=== PATIENT | female | born 1965 | race Caucasian/White ===

== ENCOUNTER 2018-03-14 08:38 | Inpatient (IN) | payer OTHER ==
[~2018-03-14] VITALS: Ht 170.2 cm; Wt 101.0 kg
[~2018-03-14 08:38] MED LIST: ACET325 PO; ALBU90OI; ALBU90OI INH; BISA10S PR; CALCAVITDA; CIPR500 PO; CRUTCH3 USE; DIVA500EC; DIVA500EC PO; DOCU100 PO; DOXY100 PO; DULERA 200 MCG/13 GM INH; FISH1000; FLUOXETINE HCL60 MG PO; FURO40 PO; GABA300 PO; HYDACE5 PO; HYDCHL12.5 PO; IBUP600 PO; IBUP800 PO; LISI5 PO; LORA.5 PO; LORA2; LOSA25; METF500C; METO25ER PO; MULVITMINE; NICO21TP TOP; NITR.4SL SL; ONDA4ODT PO; PANT40 PO; PRAV20 PO; PRED20 PO; PROZAC; RANI150; RANI150 PO; RXHYDACE PO; RXPROCODSY PO; SPIR25 PO; SULTRIDS PO; TIOT18 INH; TRAM50; TRAM50 PO; TUDORZA PRESS400 MCG IH
[2018-03-14 09:11] LABS: BASOPHILS ABSOLUTE AUTO 0.03 K/mm3 (0.00-0.23); BASOPHILS PERCENT AUTO 0 % (0-2); EOSINOPHILS PERCENT AUTO 0 % (0-6); Hematocrit 53.3 % (33.0-51.0); Hemoglobin 16.7 g/dL (11.5-16.0); IMMATURE GRAN ABSOLUTE AUTO 0.02 K/mm3 (0.00-0.10); IMMATURE GRAN PERCENT AUTO 0 % (0-1); LYMPHOCYTES ABSOLUTE AUTO 1.28 K/mm3 (0.84-5.20); LYMPHOCYTES PERCENT AUTO 11 % (21-46); MONOCYTES ABSOLUTE AUTO 0.85 K/mm3 (0.16-1.47); MONOCYTES PERCENT AUTO 7 % (4-13); Mean Corpuscular HGB 28.3 pg (26.0-34.0); Mean Corpuscular HGB Conc 31.3 g/dL (31.5-36.5); Mean Corpuscular Volume 90 fL (80-100); Mean Platelet Volume 11.1 fL (9.1-12.4); NEUTROPHILS ABSOLUTE AUTO 9.63 K/mm3 (1.96-9.15); NEUTROPHILS PERCENT AUTO 82 % (41-73); Platelet Count 189 K/mm3 (150-400); RDW Coefficient Variation 14.2 % (11.7-14.2); RDW Standard Deviation 47.6 fL (35.1-46.3); White Blood Cell Count 11.81 K/mm3 (4.00-11.30)
[2018-03-14 09:28] LABS: Alanine Aminotransfer (ALT/SGP 18 U/L (12-78); Albumin, Blood 3.3 g/dL (3.4-5.0); Albumin/Globulin Ratio 0.8 (0.8-1.8); Alk Phos 82 U/L (50-136); Anion Gap 5 mmol/L (6-16); Aspartate Aminotrans (AST/SGOT 13 U/L (12-37); Blood Urea Nitrogen 14 mg/dL (8-24); Bun/Creatinine Ratio 21.3 (12.0-20.0); CO2, Blood 31 mmol/L (21-32); Calcium, Blood 9.2 mg/dL (8.5-10.1); Chloride, Blood 100 mmol/L (98-108); Creatinine, Blood 0.66 mg/dL (0.40-1.00); Glomerular Filtration Rate >60 (60-); Glucose, Blood 160 mg/dL (70-99); Potassium, Blood 4.5 mmol/L (3.5-5.5); Sodium, Blood 136 mmol/L (136-145); Total Protein, Blood 7.3 g/dL (6.4-8.2); Troponin I <0.015 ng/mL (0.000-0.040)
[2018-03-14] MEDS ORDERED: POTCHL10ER PO (10:24)
[2018-03-14] MEDS ORDERED: ALBU90OI6 INH (13:27)
[2018-03-15 05:07] LABS: BASOPHILS ABSOLUTE AUTO 0.02 K/mm3 (0.00-0.23); BASOPHILS PERCENT AUTO 0 % (0-2); EOSINOPHILS PERCENT AUTO 0 % (0-6); Hematocrit 51.6 % (33.0-51.0); Hemoglobin 15.6 g/dL (11.5-16.0); IMMATURE GRAN ABSOLUTE AUTO 0.03 K/mm3 (0.00-0.10); IMMATURE GRAN PERCENT AUTO 0 % (0-1); LYMPHOCYTES ABSOLUTE AUTO 1.68 K/mm3 (0.84-5.20); LYMPHOCYTES PERCENT AUTO 18 % (21-46); MONOCYTES ABSOLUTE AUTO 0.95 K/mm3 (0.16-1.47); MONOCYTES PERCENT AUTO 10 % (4-13); Mean Corpuscular HGB 27.7 pg (26.0-34.0); Mean Corpuscular HGB Conc 30.2 g/dL (31.5-36.5); Mean Corpuscular Volume 92 fL (80-100); NEUTROPHILS ABSOLUTE AUTO 6.67 K/mm3 (1.96-9.15); NEUTROPHILS PERCENT AUTO 71 % (41-73); Platelet Count 148 K/mm3 (150-400); RDW Coefficient Variation 14.5 % (11.7-14.2); RDW Standard Deviation 48.4 fL (35.1-46.3); Red Blood Cell Count 5.64 M/mm3 (3.80-5.20); White Blood Cell Count 9.35 K/mm3 (4.00-11.30)
[2018-03-15 05:30] LABS: Anion Gap 4 mmol/L (6-16); Blood Urea Nitrogen 14 mg/dL (8-24); Bun/Creatinine Ratio 19.3 (12.0-20.0); CO2, Blood 37 mmol/L (21-32); Calcium, Blood 8.8 mg/dL (8.5-10.1); Chloride, Blood 97 mmol/L (98-108); Creatinine, Blood 0.73 mg/dL (0.40-1.00); Glomerular Filtration Rate >60 (60-); Glucose, Blood 120 mg/dL (70-99); Potassium, Blood 3.9 mmol/L (3.5-5.5); Sodium, Blood 138 mmol/L (136-145)
[2018-03-16 05:39] LABS: Anion Gap 4 mmol/L (6-16); Blood Urea Nitrogen 17 mg/dL (8-24); Bun/Creatinine Ratio 24.7 (12.0-20.0); CO2, Blood 36 mmol/L (21-32); Calcium, Blood 8.8 mg/dL (8.5-10.1); Chloride, Blood 97 mmol/L (98-108); Creatinine, Blood 0.69 mg/dL (0.40-1.00); Glomerular Filtration Rate >60 (60-); Glucose, Blood 111 mg/dL (70-99); Sodium, Blood 137 mmol/L (136-145)
[2018-03-17 05:40] LABS: Anion Gap 5 mmol/L (6-16); Blood Urea Nitrogen 16 mg/dL (8-24); Bun/Creatinine Ratio 20.4 (12.0-20.0); CO2, Blood 37 mmol/L (21-32); Chloride, Blood 96 mmol/L (98-108); Creatinine, Blood 0.78 mg/dL (0.40-1.00); Glomerular Filtration Rate >60 (60-); Glucose, Blood 126 mg/dL (70-99); Potassium, Blood 3.8 mmol/L (3.5-5.5); Sodium, Blood 138 mmol/L (136-145)
[2018-03-17] MEDS ORDERED: FURO40 PO (13:57)
[2018-03-17] MEDS ORDERED: POTCHL20ER PO (13:59)
== END 2018-03-17 14:21 | disposition home or self-care (01) | DRG 291 ==
LOC: ER 08:38 → MEDS 08:39
PROVIDERS: Physician Assistant; ADMIT Hospitalist
DX: I50.23 Acute on chronic systolic (congestive) heart failure (principal); J96.21 Acute and chronic respiratory failure with hypoxia; I42.9 Cardiomyopathy, unspecified; J44.9 Chronic obstructive pulmonary disease, unspecified; K21.9 Gastro-esophageal reflux disease without esophagitis; F17.210 Nicotine dependence, cigarettes, uncomplicated; E66.9 Obesity, unspecified; Z68.32 Body mass index [BMI] 32.0-32.9, adult; E78.5 Hyperlipidemia, unspecified; F41.9 Anxiety disorder, unspecified; G62.9 Polyneuropathy, unspecified
CPT/HCPCS: 36415; 71046; 80048; 80053; 83880; 84145; 84484; 85025; 93005; 93010; 94640; 94760; 94762; 96374; 99285-25; J0456; J1650; J1940; J2270; J7050

== ENCOUNTER 2018-04-24 06:01 | Day surgery (SDC) | payer OTHER ==
[~2018-04-24] VITALS: Ht 170.2 cm; Wt 97.0 kg
[~2018-04-24 06:01] MED LIST changes: +ALBU90OI6 INH; +POTCHL10ER PO; +POTCHL20ER PO
--- NOTE | 2018-04-24 08:28 | NUR ---
PT AMBULATED TO BATHROOM AND BACK WITH SBA. STEADY ON FEET. VOIDED GOOD AMOUNT. HAS NO C/O PAIN OR DISCOMFORT. NO BLEEDING TO RIGHT WRIST SITE NOTED.
--- NOTE | 2018-04-24 12:55 | NUR ---
SUMMARY: PT'S POST PROCEDURE COURSE UNCOMPLICATED. PRIOR TO DISCHARGE, REVIEWED ALL INSTRUCTIONS WITH PATIENT AND REVIEWED HANDOUTS. PT VERBALIZED UNDERSTANDING OF ALL AND WAS ABLE TO REPEAT BACK INSTRUCTIONS. IV D/C TIP INTACT PRIOR TO DISCHARGE. TR BAND DEFLATED PER POLICY AND DOT DRESSING APPLIED. WRIST SPLINT REPLACED AND CMS REMAINED WNL AFTER ALL INTERVENTIONS. NO BLEEDING NOTED PRIOR TO DISCHARGE. PT ATE, DRANK, AMBULATED ALL WITHOUT DIFFICULTY. DISCHARGED HOME VIA W/C AT 1145 WITH FRIEND TO DRIVE HER HOME.
== END 2018-04-24 11:00 | disposition home or self-care (01) ==
LOC: MHTC 06:01
DX: I25.118 Atherosclerotic heart disease of native coronary artery with other forms of angina pectoris (principal); I51.9 Heart disease, unspecified; I42.8 Other cardiomyopathies; J44.9 Chronic obstructive pulmonary disease, unspecified; F17.210 Nicotine dependence, cigarettes, uncomplicated; Z79.899 Other long term (current) drug therapy; E66.9 Obesity, unspecified; I10 Essential (primary) hypertension; F31.9 Bipolar disorder, unspecified; F41.9 Anxiety disorder, unspecified; Z68.33 Body mass index [BMI] 33.0-33.9, adult; Z99.81 Dependence on supplemental oxygen
CPT/HCPCS: 93454; 99152; 99153; C1769; C1894; J1644; J2250; J3010; J7030; Q9967

== ENCOUNTER → 2018-07-03 | Outpatient (CLI) | payer OTHER | LOC: LAB SHORT 11:36 → LAB 11:36 | DX: N76.0 Acute vaginitis (principal) | CPT/HCPCS: 87070; 87205 ==

== ENCOUNTER → 2020-03-15 | Outpatient (CLI) | payer OTHER ==
[~2020-03-15] MED LIST changes: +METF500 PO
[2020-03-15 13:48] LABS: BASOPHILS ABSOLUTE AUTO 0.06 K/mm3 (0.00-0.23); BASOPHILS PERCENT AUTO 1 % (0-2); EOSINOPHILS PERCENT AUTO 0 % (0-6); Hemoglobin 14.7 g/dL (11.5-16.0); IMMATURE GRAN ABSOLUTE AUTO 0.04 K/mm3 (0.00-0.10); IMMATURE GRAN PERCENT AUTO 1 % (0-1); LYMPHOCYTES ABSOLUTE AUTO 1.98 K/mm3 (0.84-5.20); LYMPHOCYTES PERCENT AUTO 23 % (21-46); MONOCYTES ABSOLUTE AUTO 0.52 K/mm3 (0.16-1.47); MONOCYTES PERCENT AUTO 6 % (4-13); Mean Corpuscular HGB 27.4 pg (26.0-34.0); Mean Corpuscular HGB Conc 30.6 g/dL (31.5-36.5); Mean Corpuscular Volume 89 fL (80-100); Mean Platelet Volume 10.9 fL (9.1-12.4); NEUTROPHILS ABSOLUTE AUTO 6.14 K/mm3 (1.96-9.15); NEUTROPHILS PERCENT AUTO 70 % (41-73); Platelet Count 273 K/mm3 (150-400); RDW Coefficient Variation 13.2 % (11.7-14.2); RDW Standard Deviation 42.5 fL (35.1-46.3); Red Blood Cell Count 5.37 M/mm3 (3.80-5.20); White Blood Cell Count 8.74 K/mm3 (4.00-11.30)
[2020-03-15 14:06] LABS: Alanine Aminotransfer (ALT/SGP 25 U/L (12-78); Albumin, Blood 3.6 g/dL (3.4-5.0); Albumin/Globulin Ratio 0.8 (0.8-1.8); Alk Phos 89 U/L (50-136); Anion Gap 4 mmol/L (6-16); Aspartate Aminotrans (AST/SGOT 14 U/L (12-37); Bilirubin, Total 0.5 mg/dL (0.1-1.0); Blood Urea Nitrogen 16 mg/dL (8-24); Bun/Creatinine Ratio 19.8 (12.0-20.0); CHOL/HDL RATIO 5.5; CO2, Blood 37 mmol/L (21-32); Calcium, Blood 9.7 mg/dL (8.5-10.1); Chloride, Blood 97 mmol/L (98-108); Cholesterol 235 mg/dL (50-200); Creatinine, Blood 0.81 mg/dL (0.40-1.00); Globulin, Blood 4.3 g/dL (2.2-4.0); Glomerular Filtration Rate >60 (60-); Glucose, Blood 168 mg/dL (70-99); HDL Cholesterol 43 mg/dL (>39); LDL/HDL RATIO 3.5; Low Density Lipoprotein Chol 149 mg/dL (0-110); Potassium, Blood 3.8 mmol/L (3.5-5.5); Sodium, Blood 138 mmol/L (136-145); Total Protein, Blood 7.9 g/dL (6.4-8.2); Triglycerides 217 mg/dL (30-160); Very Low Density Lipoprot Chol 43 mg/dL (6-32)
== END | disposition home or self-care (01) ==
LOC: LAB SHORT 12:29
PROVIDERS: Family Medicine
DX: E78.00 Pure hypercholesterolemia, unspecified (principal); E11.9 Type 2 diabetes mellitus without complications
CPT/HCPCS: 80053; 80061; 83036; 85025

== ENCOUNTER → 2020-04-15 | Outpatient (CLI) | payer OTHER ==
[2020-04-19 11:07] LABS: HPV 16 Negative (Negative); HPV 18 Negative (Negative); HPV OTHER HR TYPES Negative (Negative)
== END ==
LOC: LAB 12:33 → LAB SHORT 12:33
PROVIDERS: Registered Nurse Community Health
DX: Z12.4 Encounter for screening for malignant neoplasm of cervix (principal); N95.0 Postmenopausal bleeding; R93.89 Abnormal findings on diagnostic imaging of other specified body structures
CPT/HCPCS: 87624; 88305; G0123

== ENCOUNTER 2020-06-18 06:06 | Day surgery (SDC) | payer OTHER ==
[~2020-06-18] VITALS: Ht 170.2 cm; Wt 117.1 kg
[~2020-06-18 06:06] MED LIST changes: -METF500 PO
--- NOTE | 2020-06-18 06:46 | NUR ---
06/18/20 0646 Jennyfer Ignacio PT OXYGEN SATURATION RUNNING 88-90. O2 AT 2L PER NC PLACED. O2 AT 94%
[2020-06-18] MEDS ORDERED: METF500 PO (07:00)
--- NOTE | 2020-06-18 09:28 | NUR ---
06/18/20 0928 Rose Phillips PT REQUIRED 3L O2 NC UPON ARRIVAL TO SDU. PT DENIES PAIN HOWEVER COMPLAINES OF URGE TO URINATE DUE TO CATHETER INSERTION IN OR. PT ASSISTED TO RESTROOM. MINIMAL RED BLOOD ON PAD. PT DENIES PAIN AND NAUSEA. PT ON ROOM AIR PRIOR TO DC
== END 2020-06-18 09:04 | disposition home or self-care (01) ==
LOC: ORSCSDS 06:06
PROVIDERS: Obstetrics & Gynecology
PROC: 0UDB8ZX Extraction of Endometrium, Via Natural or Artificial Opening Endoscopic, Diagnostic (ICD-10-PCS; principal; 2020-06-18 07:30)
DX: N95.0 Postmenopausal bleeding (principal); C54.1 Malignant neoplasm of endometrium; I10 Essential (primary) hypertension; I50.9 Heart failure, unspecified; J44.9 Chronic obstructive pulmonary disease, unspecified; F17.210 Nicotine dependence, cigarettes, uncomplicated; G47.33 Obstructive sleep apnea (adult) (pediatric); Z99.81 Dependence on supplemental oxygen; E11.9 Type 2 diabetes mellitus without complications; F84.0 Autistic disorder; E66.01 Morbid (severe) obesity due to excess calories; Z68.41 Body mass index [BMI] 40.0-44.9, adult; Z79.899 Other long term (current) drug therapy; Z79.84 Long term (current) use of oral hypoglycemic drugs
CPT/HCPCS: 82947; 88305; J1100; J1885; J1956; J2250; J2405; J2704; J3010; J7120

== ENCOUNTER 2021-01-15 08:55 | Observation (INO) | payer OTHER ==
[~2021-01-15] VITALS: Ht 165.1 cm; Wt 102.1 kg
[~2021-01-15 08:55] MED LIST changes: +LASIX20 M2 PO; +METF500 PO
[2021-01-15 09:34] LABS: Bicarbonate Venous 42.5 mmol/L (24.0-30.0); PCO2 Venous 66.6 mmHg (38-42); PO2 Venous 174 mmHg (38-42); pH Blood Venous 7.45 (7.34-7.37)
[2021-01-15 10:03] LABS: Magnesium, Blood 1.6 mg/dL (1.6-2.4); Troponin I <0.015 ng/mL (0.000-0.040)
[2021-01-15 10:09] LABS: Blood Urea Nitrogen 6 mg/dL (8-24); Bun/Creatinine Ratio 9.9 (12.0-20.0); CO2, Blood 42 mmol/L (21-32); Calcium, Blood 9.3 mg/dL (8.5-10.1); Chloride, Blood 97 mmol/L (98-108); Creatinine, Blood 0.61 mg/dL (0.40-1.00); Glomerular Filtration Rate >60 (60-); Glucose, Blood 178 mg/dL (70-99); Potassium, Blood 4.2 mmol/L (3.5-5.5); Sodium, Blood 138 mmol/L (136-145)
[2021-01-15 10:10] LABS: Anion Gap Unable to Calculate mmol/L (6-16)
[2021-01-15 10:48] LABS: BASOPHILS ABSOLUTE AUTO 0.05 K/mm3 (0.00-0.23); BASOPHILS PERCENT AUTO 1 % (0-2); EOSINOPHILS ABSOLUTE AUTO 0.34 K/mm3 (0.00-0.68); EOSINOPHILS PERCENT AUTO 4 % (0-6); Hematocrit 46.1 % (33.0-51.0); Hemoglobin 13.2 g/dL (11.5-16.0); IMMATURE GRAN ABSOLUTE AUTO 0.06 K/mm3 (0.00-0.10); IMMATURE GRAN PERCENT AUTO 1 % (0-1); LYMPHOCYTES ABSOLUTE AUTO 1.62 K/mm3 (0.84-5.20); LYMPHOCYTES PERCENT AUTO 19 % (21-46); MONOCYTES ABSOLUTE AUTO 0.57 K/mm3 (0.16-1.47); MONOCYTES PERCENT AUTO 7 % (4-13); Mean Corpuscular HGB 25.5 pg (26.0-34.0); Mean Corpuscular HGB Conc 28.6 g/dL (31.5-36.5); Mean Corpuscular Volume 89 fL (80-100); Mean Platelet Volume 11.1 fL (9.1-12.4); NEUTROPHILS ABSOLUTE AUTO 5.98 K/mm3 (1.96-9.15); NEUTROPHILS PERCENT AUTO 69 % (41-73); Platelet Count 197 K/mm3 (150-400); RDW Coefficient Variation 13.8 % (11.7-14.2); RDW Standard Deviation 44.2 fL (35.1-46.3); Red Blood Cell Count 5.17 M/mm3 (3.80-5.20); White Blood Cell Count 8.62 K/mm3 (4.00-11.30)
[2021-01-15 11:14] LABS: SARS-Cov-2 (COVID-19) PCR, MMC NEGATIVE (NEGATIVE)
[2021-01-15] MEDS ORDERED: OMEP20ER PO (15:35)
[2021-01-15] MEDS ORDERED: ENTRESTO 24 MG1 EACH PO (15:36)
[2021-01-15] MEDS ORDERED: PRAV20 PO (15:36)
[2021-01-15] MEDS ORDERED: BUSP10 PO (15:37)
--- NOTE | 2021-01-15 17:11 | NUR ---
PATIENT WAS AN ADMIT FROM ED AT 1600 APROX. PATIENT IS ALERT AND ORIENTED X4. PATIENT IS PLEASENT AND COOPERATIVE WITH CARE. ADMISSION IS DONE AND MEDICATION RECONSILATION IS DONE. ADMITTED FOR COPD EXASPERATION. PATIENT IS ON 3LITERS WHICH IS PATIENTS BASELINE. NO ACUTE EVENTS THIS SHIFT. VITAL SIGNS REVIEWED. WILL CONTINUE TO MONITOR UNTIL SHIFT CHANGE.
--- NOTE | 2021-01-16 02:30 | NUR ---
BIODIESEL PRODUCTION ASSOCIATE SUMMARY PATIENT HAD A CALM SHIFT. SHE DID NOT LODGE ANY COMPLAIN. WILL CONTINUE TO MONIO=TOR HER. HER VITALS WERE STABLE.
[2021-01-16 06:42] LABS: Magnesium, Blood 1.7 mg/dL (1.6-2.4)
[2021-01-16 06:46] LABS: Anion Gap Unable to Calculate mmol/L (6-16); Blood Urea Nitrogen 13 mg/dL (8-24); Bun/Creatinine Ratio 20.3 (12.0-20.0); CO2, Blood 43 mmol/L (21-32); Calcium, Blood 9.7 mg/dL (8.5-10.1); Chloride, Blood 95 mmol/L (98-108); Creatinine, Blood 0.64 mg/dL (0.40-1.00); Glomerular Filtration Rate >60 (60-); Glucose, Blood 241 mg/dL (70-99); Potassium, Blood 4.5 mmol/L (3.5-5.5); Sodium, Blood 136 mmol/L (136-145)
[2021-01-16] MEDS ORDERED: IPRAT-ALBUT 0.5-3 ML INH (11:44)
[2021-01-16] MEDS ORDERED: DELTASONE20 MG PO (11:45)
--- NOTE | 2021-01-16 15:48 | NUR ---
PT SLEEPING AT START OF SHIFT. WOKE EASILY FOR CARE. PLEASANT AND CO-OP. ON 3L O2 VIA NC; PT REPORTS THAT HER BASELINE. UP TO BSC INDEPENDENTLY TO VOID. DR BA IN TO SEE PT, DISCUSSED PLAN OF CARE. PT TO D/C HOME THIS AFTERNOON. PT REQUESTED SHOWER. SET UP BY FUNERAL PRE ARRANGEMENT COUNSELOR. PT CALLED WHEN FINISHED. PT ABLE TO DRESS HERSELF. PT ON RA FOR SHOWER AND UP TO D/C. PT REPORTED THAT NORMAL. PT'S HERE TO PICK PT UP. D/C INSTRUCTIONS REVIEWED WITH PT. MEDS FAXED PER PT REQUEST AND REVIEWED; VERBALIZED UNDERSTANDING. DENIED FURTHER NEEDS. ASSISTED OUT TO CAR VIA W/C.
== END 2021-01-16 15:01 | disposition home or self-care (01) ==
LOC: ER 08:55 → MEDS 08:56
PROVIDERS: Student in an Organized Health Care Education/Training Program; ADMIT Internal Medicine
DX: J44.1 Chronic obstructive pulmonary disease with (acute) exacerbation (principal); I11.0 Hypertensive heart disease with heart failure; I50.20 Unspecified systolic (congestive) heart failure; F17.210 Nicotine dependence, cigarettes, uncomplicated; I42.8 Other cardiomyopathies; G44.229 Chronic tension-type headache, not intractable; F31.9 Bipolar disorder, unspecified; E66.01 Morbid (severe) obesity due to excess calories; K21.9 Gastro-esophageal reflux disease without esophagitis; E78.5 Hyperlipidemia, unspecified; Z86.19 Personal history of other infectious and parasitic diseases; Z88.6 Allergy status to analgesic agent; Z88.1 Allergy status to other antibiotic agents; Z88.0 Allergy status to penicillin; Z91.048 Other nonmedicinal substance allergy status; Z68.37 Body mass index [BMI] 37.0-37.9, adult; Z20.822 Contact with and (suspected) exposure to COVID-19
CPT/HCPCS: 36415; 71045; 80048; 82803; 82947; 83735; 83880; 84484; 85025; 93005; 93010; 94640; 94644; 94664; 94760; 96374; 96375; 99285-25; A9270; J1650; J1885; J1940; J2765; J2920; J2930; J7512; U0004

== ENCOUNTER 2022-03-16 17:43 | Emergency (ER) | payer OTHER ==
[~2022-03-16] VITALS: Ht 172.7 cm; Wt 96.2 kg
[~2022-03-16 17:43] MED LIST changes: +BUSP10 PO; +DELTASONE20 MG PO; +ENTRESTO 24 MG1 EACH PO; +IPRAT-ALBUT 0.5-3 ML INH; +OMEP20ER PO
[2022-03-16 18:39] LABS: BASOPHILS ABSOLUTE AUTO 0.05 K/mm3 (0.00-0.23); BASOPHILS PERCENT AUTO 1 % (0-2); EOSINOPHILS PERCENT AUTO 0 % (0-6); Hematocrit 39.6 % (33.0-51.0); Hemoglobin 12.3 g/dL (11.5-16.0); IMMATURE GRAN ABSOLUTE AUTO 0.06 K/mm3 (0.00-0.10); IMMATURE GRAN PERCENT AUTO 1 % (0-1); LYMPHOCYTES ABSOLUTE AUTO 2.17 K/mm3 (0.84-5.20); LYMPHOCYTES PERCENT AUTO 24 % (21-46); MONOCYTES ABSOLUTE AUTO 0.73 K/mm3 (0.16-1.47); MONOCYTES PERCENT AUTO 8 % (4-13); Mean Corpuscular HGB 27.6 pg (26.0-34.0); Mean Corpuscular HGB Conc 31.1 g/dL (31.5-36.5); Mean Corpuscular Volume 89 fL (80-100); Mean Platelet Volume 9.9 fL (9.1-12.4); NEUTROPHILS ABSOLUTE AUTO 5.94 K/mm3 (1.96-9.15); NEUTROPHILS PERCENT AUTO 66 % (41-73); Platelet Count 244 K/mm3 (150-400); RDW Coefficient Variation 13.3 % (11.7-14.2); RDW Standard Deviation 43.2 fL (35.1-46.3); Red Blood Cell Count 4.46 M/mm3 (3.80-5.20); White Blood Cell Count 8.95 K/mm3 (4.00-11.30)
[2022-03-16 19:01] LABS: Albumin, Blood 2.9 g/dL (3.4-5.0); Albumin/Globulin Ratio 0.7 (0.8-1.8); Bilirubin, Total 0.3 mg/dL (0.1-1.0); Bun/Creatinine Ratio 11.4 (12.0-20.0); Calcium, Blood 7.8 mg/dL (8.5-10.1); Creatinine, Blood 0.88 mg/dL (0.40-1.00); Globulin, Blood 4.1 g/dL (2.2-4.0); Potassium, Blood 3.5 mmol/L (3.5-5.5)
[2022-03-16] MEDS ORDERED: Prednisone50 MG PO (21:14)
== END 2022-03-16 21:54 | disposition home or self-care (01) ==
LOC: ER 17:43
PROVIDERS: Physician Assistant
DX: J20.9 Acute bronchitis, unspecified (principal); J44.0 Chronic obstructive pulmonary disease with (acute) lower respiratory infection; I50.20 Unspecified systolic (congestive) heart failure; Z88.0 Allergy status to penicillin; Z91.09 Other allergy status, other than to drugs and biological substances; Z79.899 Other long term (current) drug therapy; Z79.52 Long term (current) use of systemic steroids; Z87.891 Personal history of nicotine dependence
CPT/HCPCS: 36415; 71046; 80053; 83880; 84484; 85025; 93005; 93010; 94640; 94664; 99285-25; J7512

== ENCOUNTER 2023-09-09 17:29 | Emergency (ER) | payer OTHER ==
[~2023-09-09] VITALS: Ht 170.2 cm; Wt 102.1 kg
[~2023-09-09 17:29] MED LIST changes: +Prednisone50 MG PO
[2023-09-09 18:16] LABS: BASOPHILS ABSOLUTE AUTO 0.04 K/mm3 (0.00-0.23); BASOPHILS PERCENT AUTO 0 % (0-2); EOSINOPHILS PERCENT AUTO 0 % (0-6); Hematocrit 47.7 % (33.0-51.0); Hemoglobin 14.7 g/dL (11.5-16.0); IMMATURE GRAN ABSOLUTE AUTO 0.03 K/mm3 (0.00-0.10); IMMATURE GRAN PERCENT AUTO 0 % (0-1); LYMPHOCYTES ABSOLUTE AUTO 2.07 K/mm3 (0.84-5.20); LYMPHOCYTES PERCENT AUTO 18 % (21-46); MONOCYTES ABSOLUTE AUTO 0.79 K/mm3 (0.16-1.47); MONOCYTES PERCENT AUTO 7 % (4-13); Mean Corpuscular HGB Conc 30.8 g/dL (31.5-36.5); Mean Corpuscular Volume 88 fL (80-100); Mean Platelet Volume 10.5 fL (9.1-12.4); NEUTROPHILS ABSOLUTE AUTO 8.53 K/mm3 (1.96-9.15); NEUTROPHILS PERCENT AUTO 74 % (41-73); Platelet Count 243 K/mm3 (150-400); RDW Standard Deviation 41.1 fL (35.1-46.3); Red Blood Cell Count 5.44 M/mm3 (3.80-5.20); White Blood Cell Count 11.46 K/mm3 (4.00-11.30)
[2023-09-09 18:36] LABS: Albumin, Blood 3.5 g/dL (3.4-5.0); Albumin/Globulin Ratio 0.7 (0.8-1.8); Bilirubin, Total 0.6 mg/dL (0.1-1.0); Bun/Creatinine Ratio 14.6 (12.0-20.0); Calcium, Blood 9.5 mg/dL (8.5-10.1); Creatinine, Blood 1.03 mg/dL (0.40-1.00); Globulin, Blood 4.9 g/dL (2.2-4.0); Potassium, Blood 4.4 mmol/L (3.5-5.5); Total Protein, Blood 8.4 g/dL (6.4-8.2)
[2023-09-09 19:34] VITALS: BP 127/84
[2023-09-09] MEDS ORDERED: Cephalexin Monohydrate 500 MG Cap PO ONE (21:00)
[2023-09-09] MEDS ORDERED: CEPH500 PO (21:04)
[2023-09-09] MEDS ORDERED: DOXY100 PO (21:04)
[2023-09-09] MEDS ORDERED: Doxycycline Hyclate 100 MG TAB PO ONE (21:05)
== END 2023-09-09 21:11 | disposition home or self-care (01) ==
LOC: ER 17:29
PROVIDERS: Physician Assistant
DX: L02.612 Cutaneous abscess of left foot (principal); L03.116 Cellulitis of left lower limb; J44.9 Chronic obstructive pulmonary disease, unspecified; K21.9 Gastro-esophageal reflux disease without esophagitis; W57.XXXA Bitten or stung by nonvenomous insect and other nonvenomous arthropods, initial encounter; Z87.891 Personal history of nicotine dependence; Z79.52 Long term (current) use of systemic steroids; Z79.84 Long term (current) use of oral hypoglycemic drugs; Z79.899 Other long term (current) drug therapy; Z88.0 Allergy status to penicillin; Z88.1 Allergy status to other antibiotic agents; Z88.6 Allergy status to analgesic agent; Z91.048 Other nonmedicinal substance allergy status
CPT/HCPCS: 73620; 80053; 85025; 99283-25; A9270

== ENCOUNTER → 2024-03-26 | Outpatient (CLI) | payer OTHER ==
[~2024-03-26] MED LIST changes: -ALBU90OI6 INH; +ANORO ELLIPTA1 EACH INH; +CEPH500 PO; -FLUOXETINE HCL60 MG PO; -LASIX20 M2 PO; +PRAVASTATIN SOD40 MG PO; +Prozac40 MG PO
[2024-03-26 12:33] LABS: BASOPHILS ABSOLUTE AUTO 0.03 K/mm3 (0.00-0.23); BASOPHILS PERCENT AUTO 0 % (0-2); EOSINOPHILS ABSOLUTE AUTO 0.01 K/mm3 (0.00-0.68); EOSINOPHILS PERCENT AUTO 0 % (0-6); Hematocrit 48.8 % (33.0-51.0); Hemoglobin 13.6 g/dL (11.5-16.0); IMMATURE GRAN ABSOLUTE AUTO 0.04 K/mm3 (0.00-0.10); IMMATURE GRAN PERCENT AUTO 0 % (0-1); LYMPHOCYTES ABSOLUTE AUTO 1.51 K/mm3 (0.84-5.20); LYMPHOCYTES PERCENT AUTO 17 % (21-46); MONOCYTES ABSOLUTE AUTO 0.67 K/mm3 (0.16-1.47); MONOCYTES PERCENT AUTO 8 % (4-13); Mean Corpuscular HGB 24.2 pg (26.0-34.0); Mean Corpuscular HGB Conc 27.9 g/dL (31.5-36.5); Mean Corpuscular Volume 87 fL (80-100); Mean Platelet Volume 11.3 fL (9.1-12.4); NEUTROPHILS ABSOLUTE AUTO 6.72 K/mm3 (1.96-9.15); NEUTROPHILS PERCENT AUTO 75 % (41-73); Platelet Count 212 K/mm3 (150-400); RDW Coefficient Variation 14.8 % (11.7-14.2); RDW Standard Deviation 46.5 fL (35.1-46.3); Red Blood Cell Count 5.61 M/mm3 (3.80-5.20); White Blood Cell Count 8.98 K/mm3 (4.00-11.30)
[2024-03-26 12:56] LABS: Albumin, Blood 3.2 g/dL (3.4-5.0); Albumin/Globulin Ratio 0.9 (0.8-1.8); Bilirubin, Total 1.3 mg/dL (0.1-1.0); Bun/Creatinine Ratio 23.1 (12.0-20.0); Calcium, Blood 8.7 mg/dL (8.5-10.1); Creatinine, Blood 1.17 mg/dL (0.40-1.00); Globulin, Blood 3.4 g/dL (2.2-4.0); Total Protein, Blood 6.6 g/dL (6.4-8.2)
== END | disposition home or self-care (01) ==
LOC: LAB SHORT 12:29 → LAB 12:29
PROVIDERS: Physician Assistant
DX: R60.9 Edema, unspecified (principal); R06.02 Shortness of breath
CPT/HCPCS: 80053; 83880; 84484; 85025

== ENCOUNTER 2024-03-30 19:50 | Inpatient (IN) | payer OTHER ==
[~2024-03-30] VITALS: Ht 170.2 cm; Wt 95.9 kg
[~2024-03-30 19:50] MED LIST changes: -ANORO ELLIPTA1 EACH INH; -Prozac40 MG PO
[2024-03-30 20:34] LABS: BASOPHILS ABSOLUTE AUTO 0.03 K/mm3 (0.00-0.23); BASOPHILS PERCENT AUTO 0 % (0-2); EOSINOPHILS PERCENT AUTO 0 % (0-6); Hematocrit 50.5 % (33.0-51.0); Hemoglobin 14.8 g/dL (11.5-16.0); IMMATURE GRAN ABSOLUTE AUTO 0.04 K/mm3 (0.00-0.10); IMMATURE GRAN PERCENT AUTO 0 % (0-1); LYMPHOCYTES ABSOLUTE AUTO 1.96 K/mm3 (0.84-5.20); LYMPHOCYTES PERCENT AUTO 21 % (21-46); MONOCYTES ABSOLUTE AUTO 1.07 K/mm3 (0.16-1.47); MONOCYTES PERCENT AUTO 12 % (4-13); Mean Corpuscular HGB 24.5 pg (26.0-34.0); Mean Corpuscular HGB Conc 29.3 g/dL (31.5-36.5); Mean Corpuscular Volume 84 fL (80-100); Mean Platelet Volume 10.8 fL (9.1-12.4); NEUTROPHILS ABSOLUTE AUTO 6.17 K/mm3 (1.96-9.15); NEUTROPHILS PERCENT AUTO 67 % (41-73); NRBC ABSOLUTE 0.03 K/mm3 (0.00-0.02); NRBC Auto 0.3 /100 WBC (0.0-0.2); Platelet Count 251 K/mm3 (150-400); RDW Coefficient Variation 16.7 % (11.7-14.2); RDW Standard Deviation 45.4 fL (35.1-46.3); Red Blood Cell Count 6.05 M/mm3 (3.80-5.20); White Blood Cell Count 9.27 K/mm3 (4.00-11.30)
[2024-03-30 20:59] LABS: Alanine Aminotransfer (ALT/SGP 723 U/L (12-78); Albumin, Blood 3.3 g/dL (3.4-5.0); Alk Phos 121 U/L (50-136); Anion Gap 8 mmol/L (3-11); Aspartate Aminotrans (AST/SGOT 557 U/L (12-37); Bilirubin, Total 1.4 mg/dL (0.1-1.0); Blood Urea Nitrogen 45 mg/dL (8-24); Bun/Creatinine Ratio 31.9 (12.0-20.0); CO2, Blood 36 mmol/L (21-32); Chloride, Blood 95 mmol/L (98-108); Creatinine, Blood 1.41 mg/dL (0.40-1.00); Globulin, Blood 3.4 g/dL (2.2-4.0); Glomerular Filtration Rate 44 (60-); Glucose, Blood 180 mg/dL (70-99); Potassium, Blood 4.9 mmol/L (3.5-5.5); Sodium, Blood 134 mmol/L (136-145); Total Protein, Blood 6.7 g/dL (6.4-8.2)
[2024-03-30 23:36] LABS: Acetaminophen, Random <2.0 ug/mL (10.0-30.0)
[2024-03-31] MEDS ORDERED: Furosemide 10 MG/ML 4ML Vial IV ONE (00:20)
[2024-03-31] MEDS ORDERED: FLU VACC TS2024-25(6MOS UP)/PF 45 MCG/0.5 ML SYRINGE IM ONE (02:35)
[2024-03-31 04:51] LABS: BASOPHILS ABSOLUTE AUTO 0.04 K/mm3 (0.00-0.23); BASOPHILS PERCENT AUTO 0 % (0-2); EOSINOPHILS PERCENT AUTO 0 % (0-6); Hematocrit 46.5 % (33.0-51.0); Hemoglobin 13.9 g/dL (11.5-16.0); IMMATURE GRAN ABSOLUTE AUTO 0.04 K/mm3 (0.00-0.10); IMMATURE GRAN PERCENT AUTO 0 % (0-1); LYMPHOCYTES ABSOLUTE AUTO 1.91 K/mm3 (0.84-5.20); LYMPHOCYTES PERCENT AUTO 20 % (21-46); MONOCYTES ABSOLUTE AUTO 0.87 K/mm3 (0.16-1.47); MONOCYTES PERCENT AUTO 9 % (4-13); Mean Corpuscular HGB Conc 29.9 g/dL (31.5-36.5); Mean Corpuscular Volume 84 fL (80-100); NEUTROPHILS ABSOLUTE AUTO 6.89 K/mm3 (1.96-9.15); NEUTROPHILS PERCENT AUTO 71 % (41-73); Platelet Count 228 K/mm3 (150-400); RDW Coefficient Variation 16.8 % (11.7-14.2); RDW Standard Deviation 45.9 fL (35.1-46.3); Red Blood Cell Count 5.56 M/mm3 (3.80-5.20); White Blood Cell Count 9.75 K/mm3 (4.00-11.30)
[2024-03-31] MEDS ORDERED: FentaNYL Citrate 50 MCG/ML 2 ML Injection IV PRN (05:10)
[2024-03-31 05:34] LABS: Albumin, Blood 3.1 g/dL (3.4-5.0); Bun/Creatinine Ratio 33.8 (12.0-20.0); Calcium, Blood 8.8 mg/dL (8.5-10.1); Creatinine, Blood 1.3 mg/dL (0.40-1.00); Potassium, Blood 4.9 mmol/L (3.5-5.5); Total Protein, Blood 6.1 g/dL (6.4-8.2)
[2024-03-31 07:27] LABS: Source, Urine Clean Catch
[2024-03-31 07:49] LABS: Appearance, Urine Clear (Clear); Bilirubin, Urine Neg (Neg); Blood, Urine Neg (Neg); Color, Urine Yellow (P-Yellow); Glucose Qualitative, Urine Neg (Neg); Ketones, Urine Neg (Neg); Leukocyte Esterase, Urine Neg (Neg); Nitrite, Urine Neg (Neg); Protein, Urine 1+ (Neg); Urobilinogen, Urine NORM (Normal)
[2024-03-31] MEDS ORDERED: Furosemide 10 MG/ML 4ML Vial IV SCH ×2 (09:00)
[2024-03-31] MEDS ORDERED: Enoxaparin 40 MG/0.4 ML SYR SC SCH (09:00)
[2024-03-31] MEDS ORDERED: Midodrine 2.5 MG Tab PO SCH (09:00)
[2024-03-31 14:38] VITALS: BP 104/86
[2024-03-31] MEDS ORDERED: ENTRESTO 24 MG1 EACH PO (14:59)
[2024-03-31] MEDS ORDERED: ANORO ELLIPTA1 EACH INH (15:02)
[2024-03-31 18:25] VITALS: BP 96/77
--- NOTE | 2024-03-31 19:16 | NUR ---
SHIFT SUMMARY: PT IS A/O X 4, SBA. COOPERATIVE WITH CARE. PT ON 3 LPM VIA NC WHICH IS HER BASELINE 02 NEEDS. PT HAS INSP/EXP WHEEZES AND COARSE LS IN THE BASES. PT HAD VERY COLD FEET AND WERE CYANOTIC TOES. WAS ABLE TO GET PEDAL PULSES BY DOPPLAR. PT REPORTED SHE HAD DIFFICULTY EATING DINNER DUE TO NO TEETH AND SHE LEFT HER DENTURES AT HOME. DIET TEXTURE CHANGED TO MEET PT DIET NEEDS. PT AGREED TO TEXTURE CHANGE. PT REPORTED PAIN TO LOWER BACK. FENTANYL 25 MCG GIVEN PER ORDER AND WAS EFFECTIVE IN TREATING HER PAIN.
[2024-03-31 20:59] VITALS: BP 97/82
[2024-04-01] VITALS (7 sets, daily range): BP systolic 89–109; BP diastolic 58–82
--- NOTE | 2024-04-01 05:24 | NUR ---
SHIFT SUMMARY; PATIENT SLEPT IN LONG INTERVALS. DENIED NEEDING PAIN MEDS. I&O INFORCED AND REMINDED HER TO SAVE ANY URINES.
[2024-04-01 05:53] LABS: Hematocrit 48.5 % (33.0-51.0); Hemoglobin 13.8 g/dL (11.5-16.0); Mean Corpuscular HGB 24.6 pg (26.0-34.0); Mean Corpuscular HGB Conc 28.5 g/dL (31.5-36.5); Mean Corpuscular Volume 86 fL (80-100); Platelet Count 219 K/mm3 (150-400); RDW Coefficient Variation 16.2 % (11.7-14.2); RDW Standard Deviation 47.4 fL (35.1-46.3); Red Blood Cell Count 5.62 M/mm3 (3.80-5.20); White Blood Cell Count 12.03 K/mm3 (4.00-11.30)
[2024-04-01 06:21] LABS: Bun/Creatinine Ratio 32.7 (12.0-20.0); Calcium, Blood 9.1 mg/dL (8.5-10.1); Creatinine, Blood 1.53 mg/dL (0.40-1.00); Magnesium, Blood 1.7 mg/dL (1.6-2.4); Phosphorus, Blood 4.7 mg/dL (2.5-4.9); Potassium, Blood 4.8 mmol/L (3.5-5.5)
[2024-04-01] MEDS ORDERED: NS 500 ML IV SCH (08:00)
[2024-04-01 08:23] LABS: Albumin, Blood 2.9 g/dL (3.4-5.0); Albumin/Globulin Ratio 0.9 (0.8-1.8); Bilirubin, Direct 0.4 mg/dL (0.0-0.3); Bilirubin, Indirect 0.7 mg/dL (0.1-0.7); Bilirubin, Total 1.1 mg/dL (0.1-1.0); Globulin, Blood 3.3 g/dL (2.2-4.0); Total Protein, Blood 6.2 g/dL (6.4-8.2)
[2024-04-01] MEDS ORDERED: Furosemide 20 MG Tab PO SCH (09:00)
[2024-04-01 10:12] LABS: Source, Urine Clean Catch
[2024-04-01 10:14] LABS: Appearance, Urine Clear (Clear); Bilirubin, Urine Neg (Neg); Blood, Urine 3+ (Neg); Color, Urine Yellow (P-Yellow); Glucose Qualitative, Urine Neg (Neg); Ketones, Urine Neg (Neg); Leukocyte Esterase, Urine 1+ (Neg); Nitrite, Urine Neg (Neg); Protein, Urine 2+ (Neg); Specific Gravity, Urine 1.015 (1.003-1.022); Urobilinogen, Urine NORM (Normal)
[2024-04-01 10:25] LABS: Bacteria Mod /hpf; Squamous Epithelial Cells Many /hpf (Few); White Blood Cells, Urine 0-2 /hpf (0-5)
[2024-04-01] MEDS ORDERED: Methocarbamol 500 MG Tab PO PRN (11:05)
[2024-04-01] MEDS ORDERED: Ipratropium/Albuterol SulF 2.5-0.5MG/3 ML Amp INH PRN (11:05)
[2024-04-01] MEDS ORDERED: Lidocaine 4% 1 Patch TOP SCH (12:00)
[2024-04-01 17:41] LABS: HEPATITIS A ANTIBODY, IGM Negative (Negative); HEPATITIS B CORE ANTIBODY, IGM Negative (Negative); HEPATITIS B SURFACE ANTIGEN Negative (Negative); HEPATITIS C AB CIA INTERP Low Pos (Negative); HEPATITIS C ANTIBODY CIA INDEX 6.76 IV
[2024-04-01] MEDS ORDERED: Midodrine 5 MG Tab PO SCH (18:00)
--- NOTE | 2024-04-01 18:46 | NUR ---
SHIFT SUMMARY: PT IS A/O X 4, SBA TO BATHROOM PLEASANT AND COOPERATIVE WITH CARE. PT ON 3 LPM VIA NC WHICH IS HER BASELINE. PT C/O LOWER BACK PAIN. LIDOCAINE PATCH AND MUSCLE RELAXER EFFECTIVE IN TREATING PAIN. PT HAD NO OTHER CONCERNS OR COMPLAINTS THROUGH THE DAY.
[2024-04-01] MEDS ORDERED: Nitrofurantoin/Nitrofuran Mac 100 MG Cap PO SCH (21:00)
[2024-04-02 05:49] VITALS: BP 95/78
--- NOTE | 2024-04-02 06:03 | NUR ---
SHIFT SUMMARY; PATIENT SLEPT IN LONG INTERVALS, UP TO BR INDEPEND. GIVEN PRN ROBAXIN AT HS. O2/3L/NC
[2024-04-02 06:06] LABS: BASOPHILS ABSOLUTE AUTO 0.04 K/mm3 (0.00-0.23); BASOPHILS PERCENT AUTO 0 % (0-2); EOSINOPHILS PERCENT AUTO 0 % (0-6); Hematocrit 46.3 % (33.0-51.0); Hemoglobin 13.4 g/dL (11.5-16.0); IMMATURE GRAN ABSOLUTE AUTO 0.04 K/mm3 (0.00-0.10); IMMATURE GRAN PERCENT AUTO 0 % (0-1); LYMPHOCYTES ABSOLUTE AUTO 1.82 K/mm3 (0.84-5.20); LYMPHOCYTES PERCENT AUTO 18 % (21-46); MONOCYTES ABSOLUTE AUTO 0.94 K/mm3 (0.16-1.47); MONOCYTES PERCENT AUTO 9 % (4-13); Mean Corpuscular HGB 24.7 pg (26.0-34.0); Mean Corpuscular HGB Conc 28.9 g/dL (31.5-36.5); Mean Corpuscular Volume 85 fL (80-100); Mean Platelet Volume 11.2 fL (9.1-12.4); NEUTROPHILS ABSOLUTE AUTO 7.52 K/mm3 (1.96-9.15); NEUTROPHILS PERCENT AUTO 73 % (41-73); Platelet Count 207 K/mm3 (150-400); RDW Coefficient Variation 16.6 % (11.7-14.2); Red Blood Cell Count 5.43 M/mm3 (3.80-5.20); White Blood Cell Count 10.36 K/mm3 (4.00-11.30)
[2024-04-02 06:57] LABS: Bilirubin, Total 0.8 mg/dL (0.1-1.0); Bun/Creatinine Ratio 34.8 (12.0-20.0); Calcium, Blood 8.8 mg/dL (8.5-10.1); Creatinine, Blood 1.38 mg/dL (0.40-1.00); Globulin, Blood 3.1 g/dL (2.2-4.0); Magnesium, Blood 1.8 mg/dL (1.6-2.4); Potassium, Blood 4.5 mmol/L (3.5-5.5); Total Protein, Blood 6.1 g/dL (6.4-8.2)
[2024-04-02 07:41] VITALS: BP 107/77
[2024-04-02] MEDS ORDERED: Cosyntropin 0.25 MG / ML 1ML Vial IV ONE (09:30)
[2024-04-02] MEDS ORDERED: HYDROmorphone HCl 2 MG Tab PO PRN (10:35)
[2024-04-02 13:12] VITALS: BP 104/83
[2024-04-02] MEDS ORDERED: Diclofenac Sodium 100 GM TUBE TOP SCH (14:00)
[2024-04-02 17:02] VITALS: BP 99/77
[2024-04-02 17:53] LABS: HCV QNT BY NAAT (IU/ML) Not Detected; HCV QNT BY NAAT (LOG IU/ML) Not Detected; HCV QNT BY NAAT INTERP Not Detected (Not Detected)
[2024-04-02] MEDS ORDERED: Furosemide 10 MG / ML 2ML Vial IV SCH (18:00)
--- NOTE | 2024-04-02 18:47 | NUR ---
SHIFT SUMMARY: PT IS A/O X 4 SBA. PT CONTINUES TO HAVE SIGNIFICANT EDEMA TO BLE. PT CONTINUES TO BE ON 3 LPM VIA NC. LS ARE COARS/WHEEZY THROUGHOUT. PT REPORTED SHE HAS YELLOW STOOLS. BACK PAIN WAS MANAGED WELL WITH DILAUDID AND HEATING PAD THROUGHOUT THE DAY.
[2024-04-02 19:36] VITALS: BP 102/90
[2024-04-02] MEDS ORDERED: Metoprolol Tartrate 25 MG Tab PO SCH (21:00)
[2024-04-02] MEDS ORDERED: Sennosides 8.6 MG Tab PO SCH (21:00)
[2024-04-03 05:22] VITALS: BP 107/93
[2024-04-03 06:04] LABS: BASOPHILS ABSOLUTE AUTO 0.04 K/mm3 (0.00-0.23); BASOPHILS PERCENT AUTO 0 % (0-2); EOSINOPHILS PERCENT AUTO 0 % (0-6); Hematocrit 50.6 % (33.0-51.0); Hemoglobin 14.5 g/dL (11.5-16.0); IMMATURE GRAN ABSOLUTE AUTO 0.05 K/mm3 (0.00-0.10); IMMATURE GRAN PERCENT AUTO 0 % (0-1); LYMPHOCYTES ABSOLUTE AUTO 1.75 K/mm3 (0.84-5.20); LYMPHOCYTES PERCENT AUTO 15 % (21-46); MONOCYTES ABSOLUTE AUTO 1.44 K/mm3 (0.16-1.47); MONOCYTES PERCENT AUTO 12 % (4-13); Mean Corpuscular HGB 24.2 pg (26.0-34.0); Mean Corpuscular HGB Conc 28.7 g/dL (31.5-36.5); Mean Corpuscular Volume 85 fL (80-100); Mean Platelet Volume 11.2 fL (9.1-12.4); NEUTROPHILS ABSOLUTE AUTO 8.57 K/mm3 (1.96-9.15); NEUTROPHILS PERCENT AUTO 72 % (41-73); NRBC ABSOLUTE 0.05 K/mm3 (0.00-0.02); NRBC Auto 0.4 /100 WBC (0.0-0.2); Platelet Count 235 K/mm3 (150-400); RDW Coefficient Variation 16.2 % (11.7-14.2); Red Blood Cell Count 5.98 M/mm3 (3.80-5.20); White Blood Cell Count 11.85 K/mm3 (4.00-11.30)
--- NOTE | 2024-04-03 06:21 | NUR ---
SHIFT SUMMARY PT A&OX4 AND ANSWERS QUESTIONS APPROPRIATELY. PT RECEIVED HS MEDICATIONS WITHOUT ANY ADVERSE EFFECTS. PT HAD A SLEEP STUDY THIS NIGHT, SO PT SPENT MOST OF SHIFT IN BED WITH EYES CLOSED. VSS, NO COMPLAINTS OF CP/PRESSURE OR SOB. NO ACUTE EVENTS AT THIS TIME. PT REPOSITIONED INDEPENDENTLY. PT LEFT IN A POSITION OF SAFETY WITH FALL PRECAUTIONS IN PLACE AND CALL LIGHT IN REACH.
[2024-04-03 06:44] LABS: Albumin, Blood 3.3 g/dL (3.4-5.0); Bilirubin, Total 1.5 mg/dL (0.1-1.0); Bun/Creatinine Ratio 32.1 (12.0-20.0); Calcium, Blood 9.3 mg/dL (8.5-10.1); Creatinine, Blood 1.87 mg/dL (0.40-1.00); Globulin, Blood 3.3 g/dL (2.2-4.0); Potassium, Blood 6.2 mmol/L (3.5-5.5); Total Protein, Blood 6.6 g/dL (6.4-8.2)
[2024-04-03] MEDS ORDERED: CALCIUM GLUC IN NACL, ISO-OSM 100 ML IV ONE (07:05)
[2024-04-03] MEDS ORDERED: Insulin Regular 100 UNIT/ML 10ML Vial IV ONE ×2 (07:05→09:15)
[2024-04-03] MEDS ORDERED: Dextrose 50% 50 ML Vial IV ONE (07:10)
[2024-04-03 07:36] VITALS: BP 99/76
[2024-04-03 11:32] LABS: Percent Saturation 4.8 % (15.0-50.0)
[2024-04-03 13:08] VITALS: BP 96/75
[2024-04-03] MEDS ORDERED: Prozac40 MG PO (15:39)
[2024-04-03] MEDS ORDERED: Empagliflozin 10 MG TAB PO SCH (16:00)
[2024-04-03 16:31] VITALS: BP 91/69
--- NOTE | 2024-04-03 17:50 | NUR ---
SHIFT SUMMARY PT IS A/OX4, SBA TO BATHROOM. PITTING EDEMA TO THE BILAT LOWER EXTREMITIES. PT ON 3L NC, WHICH IS HER BASELINE, SATS MAINTAINING >95%. PT'S POTASSIUM CRITICALLY HIGH THIS AM. EKG PERFORMED, SEE CHART. PT MEDICATED WITH REGULAR INSULIN, DEXTROSE 50%, AND CALCIUM GLUCONATE PER MAY. PT CALLS APPROPRIATELY USING THE CALL LIGHT.
[2024-04-03] MEDS ORDERED: Furosemide 10 MG/ML 4ML Vial IV SCH (18:00)
[2024-04-03] MEDS ORDERED: Ondansetron HCl 2 MG / ML 2ML Vial IV PRN (19:45)
--- NOTE | 2024-04-03 19:49 | NUR ---
HOSPITALIST CONTACT REVIEWED PT CHART AT BEGINNING OF SHIFT. PT HAD CH POTASSIUM OF 6.2 WITH NO RECHECK. TALKED TO AMADO. NEW ORDER FOR STAT BMP. HE ADVISED TO CALL BACK IF POTASSIUM IS STILL HIGH FOR ADDITIONAL ORDERS. ALSO, NEW ORDER FOR TELE ( LONG PT DOES NOT HAVE A PACEMAKER OR DIFIBRILLATOR).
[2024-04-03 20:11] VITALS: BP 108/78
[2024-04-03] MEDS ORDERED: Famotidine 20 MG Tab PO SCH (21:00)
[2024-04-03] MEDS ORDERED: Metoprolol Succinate 25 MG TABCR PO SCH (21:00)
[2024-04-03] MEDS ORDERED: Sodium Zirconium Cyclosilicate 10 GM Packet PO SCH (21:00)
[2024-04-03 21:06] LABS: Bun/Creatinine Ratio 28.9 (12.0-20.0); Calcium, Blood 9.9 mg/dL (8.5-10.1); Creatinine, Blood 2.32 mg/dL (0.40-1.00); Potassium, Blood 6.3 mmol/L (3.5-5.5)
--- NOTE | 2024-04-03 21:40 | NUR ---
HOSPITALIST CONTACT AND HOUSING ASSISTANT NOTIFIED AMADO OF CRITICAL VALUE, POTASSIUM INCREASED TO 6.3. AMADO REQUESTED THIS RN TO CALL HOUSING ASSISTANT, DR TURNER SINCE HE IS CONSULTING WITH THIS PATIENT. NO NEW ORDERS. CALL TO DR TURNER. ADVISED OF INCREASED POSTASSIUM AND WORSENING RENAL FUNCTION. HOUSING ASSISTANT SPOKE OF PUTTING PT ON DOBUTAMINE DRIP BUT SAID HE WOULD WAIT TO TALK TO MERIT SYSTEM DIRECTOR TO ORDER. FOR NOW, ORDERED A 50MEQ BICARB PUSH ONE TIME NOW TO HELP BRING DOWN POTASSIUM. ADVISED DR OF PT SOFTER BLOOD PRESSURE. DR TURNER ADVISED TO PUT PT ON RENAL DIET/LOW POTASSIUM AND HOLD LASIX FOR SYS BP LESS THAN 95. AFFIRMED PARAMETERS TO HOLD METOPROLOL FOR LOW BP. DR TURNER SAID HE WANTED PT TO BE ON TELE; ADVISED PT PLACED ON TELE EARLIER THIS SHIFT. STATED HE WOULD PREFER PT TO BE XFERED TO PCU DUE TO ACQUITY. ADVISED WOULD DISCUSS WITH CHARGE NURSE AND CONT TO MONTIOR PT.
--- NOTE | 2024-04-03 21:40 | NUR ---
HOSPITALIST CONTACT AND SHIPPING SUPPORT NOTIFIED AMADO OF CRITICLAL VALUE INCREASED POTASSIUM OF 6.3. AMADO REQUESTED THIS RN TO CALL SHIPPING SUPPORT DR TURNER SINCE HE IS CONSULTING WITH THIS PATIENT. NO NEW ORDERS. CALL TO DR. TURNER. ADVISED DR OF INCREAED POTASSIUM AND WORSENING RENAL FUNCTION. DR SAID THAT HE WANTS TO PUT PT ON DOBUTAMINE DRIP BUT WILL WAIT TO ORDER UNTIL HE CAN SPEAK WITH LOAN ADVISER WHO CONSULTED TODAY. ORDERED 50 MEQ IV POTASSIUM PUSH ONCE NOW TO HELP WITH POSTASSIUM. PT TO GET FIRST DOSE OF LOWCAL WITH [address] TURNER REQUESTED PT BE TRANSFERED TO PCU DUE TO ACUITY. ADVISED WOULD LET CHARGE NURSE KNOW.
[2024-04-03] MEDS ORDERED: Sodium Bicarb 8.4% 1 MEQ/ML 50 ML Vial IV ONE (21:55)
[2024-04-03 23:07] VITALS: BP 92/65
--- NOTE | 2024-04-03 23:54 | NUR ---
HOSPITALIST CONTACT THIS RN BEING NOTIFIED BY SILK WEAVER PT HR IS SUSTAINING IN 130'S FOR MORE THAN 5 MINUTES WITH FREQUENT INCREASE INTO 150'S. RECHECK OF BP IS 92/65. CALL TO HOSPITALIST, SPOKE TO AMADO. ADVISED OF PATIENT'S HR AND BP. ALSO NOTED DR FOY'S EARLIER REQUEST TO HAVE PT MOVED. AMADO ORDERED TRANSFER TO PCU AND WOULD ADDRESS MEDICATIONS FOR PT WHEN MOVED. NO NEW ORDERS FOR MEDICATIONS AT THIS TIME.
[2024-04-04] VITALS (66 sets, daily range): BP systolic 75–109; BP diastolic 55–83
--- NOTE | 2024-04-04 00:52 | NUR ---
TRANSFER PATIENT ARRIVED TO PCU 15 FROM [facility]. PATIENT IS ALERT AND ORIENTED X4 ALTHOUGH DROWSY AND FALLING ASLEEP SHORTLY AFTER ANSWERING QUESTIONS. ON BASELINE O2 OF 3 LITERS VIA NC WITH SPO2 >90%. PATIENT IS IN AFIB WITH RATE RANGING BETWEEN 120-130'S, HYPOTENSIVE. LUNG SOUNDS DIMINISHED. WILL CONTINUE TO MONITOR. CALL LIGHT WITHIN REACH.
--- NOTE | 2024-04-04 01:09 | NUR ---
PHYSICIAN COMMUNICATION CONTACTED DR CONTI TO DISCUSS PLAN OF CARE FOR PATIENT. INFORMED HIM OF THE PATIENT'S POTASSIUM LEVEL AND WHAT SHE HAD BEEN TREATED WITH. ALSO DISCUSSED THAT THE PATIENT IS IN AFIB WITH RVR WITH RATE RANGING FROM 120-140'S WITH NO CURRENT AVAILABLE TREATMENT AND CURRENT HYPOTENTION. PLAN OF CARE DISCUSSED, HAVE MORNING LABS RECHECKED AT 0300 TO REASSESS ELECTROLITES AND ADMINISTER AN EXTRA DOSE OF MIDODRINE. DR CONTI TO INPUT THE ORDER. REASSESS BLOODPRESSURE TO DETERMINE OF PO METOPROLOL CAN BE ADMINISTERED LATER. WILL CONTINUE TO MONITOR.
[2024-04-04] MEDS ORDERED: Midodrine 5 MG Tab PO ONE (02:00)
[2024-04-04 03:31] LABS: BASOPHILS ABSOLUTE AUTO 0.03 K/mm3 (0.00-0.23); BASOPHILS PERCENT AUTO 0 % (0-2); EOSINOPHILS ABSOLUTE AUTO 0.01 K/mm3 (0.00-0.68); EOSINOPHILS PERCENT AUTO 0 % (0-6); Hematocrit 54.2 % (33.0-51.0); Hemoglobin 16.1 g/dL (11.5-16.0); IMMATURE GRAN ABSOLUTE AUTO 0.13 K/mm3 (0.00-0.10); IMMATURE GRAN PERCENT AUTO 1 % (0-1); LYMPHOCYTES ABSOLUTE AUTO 1.18 K/mm3 (0.84-5.20); LYMPHOCYTES PERCENT AUTO 9 % (21-46); MONOCYTES ABSOLUTE AUTO 1.85 K/mm3 (0.16-1.47); MONOCYTES PERCENT AUTO 14 % (4-13); Mean Corpuscular HGB 24.8 pg (26.0-34.0); Mean Corpuscular HGB Conc 29.7 g/dL (31.5-36.5); Mean Corpuscular Volume 83 fL (80-100); Mean Platelet Volume 11.3 fL (9.1-12.4); NEUTROPHILS PERCENT AUTO 76 % (41-73); NRBC ABSOLUTE 0.22 K/mm3 (0.00-0.02); NRBC Auto 1.7 /100 WBC (0.0-0.2); Platelet Count 224 K/mm3 (150-400); RDW Coefficient Variation 17.7 % (11.7-14.2); RDW Standard Deviation 46.5 fL (35.1-46.3)
[2024-04-04 03:35] LABS: Source, Urine Voided
[2024-04-04 03:38] LABS: Appearance, Urine Hazy (Clear); Blood, Urine Neg (Neg); Color, Urine Amber (P-Yellow); Glucose Qualitative, Urine Neg (Neg); Ketones, Urine Neg (Neg); Leukocyte Esterase, Urine 1+ (Neg); Nitrite, Urine Neg (Neg); Protein, Urine 2+ (Neg); Urobilinogen, Urine 1+ (Normal)
[2024-04-04 03:49] LABS: Bilirubin, Urine 1+ (Neg)
[2024-04-04 03:51] LABS: Bacteria Mod /hpf; Hyaline Casts 0-2 /lpf (0-2); Red Blood Cells, Urine 0-2 /hpf (0-2); Squamous Epithelial Cells Many /hpf (Few); White Blood Cells, Urine 0-2 /hpf (0-5)
[2024-04-04 03:51] LABS: Uric Acid, Blood 12.9 mg/dL (2.6-6.0)
[2024-04-04 04:08] LABS: Bun/Creatinine Ratio 28.9 (12.0-20.0); Calcium, Blood 9.6 mg/dL (8.5-10.1); Creatinine, Blood 2.56 mg/dL (0.40-1.00); Potassium, Blood 6.9 mmol/L (3.5-5.5)
[2024-04-04 04:15] LABS: U Amphetamine Screen Not Detected; U Barbituate Screen Not Detected; U Benzodiazapine Screen Not Detected; U Buprenorphine Screen Not Detected; U Cannabinoids Screen Not Detected; U Cocaine Screen Not Detected; U Methadone Screen Not Detected; U Methamphetamine Screen Not Detected; U Opiates Screen DETECTED; U Oxycodone Screen Not Detected; U Phencyclidine Screen Not Detected
--- NOTE | 2024-04-04 04:19 | NUR ---
PHYSICIAN COMMUNICATION CONTACTED DR CONTI TO NOTIFY HIM OF THIS MORNING'S CRITICAL HIGH POTASSIUM OF 6.9. HE ORDERED 5 UNITS IV INSULIN AND 2 AMPS OF D50 PATIENT'S BLOOD SUGAR WAS IN THE 80'S.
[2024-04-04] MEDS ORDERED: Insulin Regular 100 UNIT/ML 10ML Vial IV ONE (04:20)
[2024-04-04] MEDS ORDERED: Dextrose 50% 50 ML Syringe IV ONE (04:20)
--- NOTE | 2024-04-04 04:59 | NUR ---
PHYSICIAN COMMUNICATION CALLED DR CONTI TO NOTIFY HIM THAT THIS RN WAS GETTING READY TO ADMINISTER THE IV INSULIN AND D50 AND THAT THE POC BLOOD GLUCOSE WAS 116 AND WANTED TO VERIFY WHETHER OR NOT HE STILL WANTED 2 AMPS OF D50 GIVEN[address] CONTI SAID ONE AMP OF D50 WOULD SUFFICE.
--- NOTE | 2024-04-04 07:54 | NUR ---
DURING BEDSIDE SHIFT REPORT THIS RN WAS IN THE ROOM WITH ALEM ENRIQUEZ RN. THE PT HAD AMS, SOFT BP, AND LOW TEMPATURE. WE PULLED UP THE PT'S LAB'S TO DISCUSS THEM. AFTER ASSESSING THE PT, THIS RN TALKED WITH CONTINUOUS IMPROVEMENT ENGINEER KULWINDER Slaughter TO LET HER KNOW THE PT IS PRETTY SICK IN THE ROOM. AT THIS TIME DR. MELGAR CAME TO BEDSIDE AND ASSESSED THE PT. WE REVIEWED HER MEDICATIONS AND LABS AND HE CALLED DR. BRUNER TO DISCUSS THE PT. ICU TX ORDERS WERE OBTAINED. A TEMP ANDERSON WAS PLACED, AMN AND LACTIC WERE ORDERED, AND DR. MELGAR WANTED THE MORNING METOPROLOL HELD. ICU CONTINUOUS IMPROVEMENT ENGINEER INFORMED OF THE NEED OF A BED BY CONTINUOUS IMPROVEMENT ENGINEER GABE. SEE NOTES FOR UPDATES.
[2024-04-04] MEDS ORDERED: DOBUtamine 250 MG/D5W 250 ML 250 ML IV SCH (08:00)
--- NOTE | 2024-04-04 08:14 | NUR ---
DR. RIVAS TO BEDSIDE TO EVALUATE THE PT. HE TALKED TO HER ABOUT THE PLAN OF CARE, THE TRANSFER TO ICU, AND POTENTIAL NEED FOR DIALYSIS. DR. RIVAS CALLED PT'S PER PT REQUEST.
[2024-04-04] MEDS ORDERED: Midodrine 5 MG Tab PO SCH (09:00)
[2024-04-04] MEDS ORDERED: Furosemide 10 MG/ML 4ML Vial IV SCH ×2 (09:00)
[2024-04-04] MEDS ORDERED: Dopamine/Dextrose 250 ML IV SCH (10:05)
--- NOTE | 2024-04-04 11:56 | NUR ---
LATE ENTRY: ARRIVAL TO UNIT AND MORNING: PATIENT ARRIVED TO UNIT VIA BED AT 08:47. PATIENT ALERT AND ORIENTED TO SELF AND LOCATION. PATIENT DISPLAYED SOME STML AND CONFUSION WITH FOLLOWING DIRECTIONS. PATIENT ABLE TO MAKE HER NEEDS KNOWN. STARTED DOBUTAMINE AT ORDERED 2.5 MCG/KG/MIN PER ORDER IN LEFT AC PIV. IT FLUSHES EASILY AND HAS GOOD BLOOD RETURN. SBP IN THE 80S AND MAPS IN THE LOW 70S. HR IN THE 70S - NSR. PATIENT DENIES CHEST PAIN OR DISCOMFORT. USING DOPPLER, ABLE TO FIND PEDIS PULSES ON LEFT FOOT. UNABLE TO FIND PULSES WITH DOPPLER IN RIGHT FOOT. DR. MAHARAJ AWARE. BLE ARE COOL. 3+ EDEMA IN BLE. PATIENT DENIES SHORTNESS OF BREATH. PATIENT CURRENTLY ON 5L VIA NC WITH SPO2 >94%. RR IN THE TEENS. LUNGS DIMINISHED WITH FINE CRACKLES IN THE BASES. ANDERSON IN PLACE. DURING MORNING, PATIENT PRODUCED 10 ML OF URINE. NO BOWEL MOVEMENT. DR. MELGAR, DR. RIVAS, AND DR. MAHARAJ AT BEDSIDE TO DISCUSS PLAN OF CARE OF PATIENT. AROUND 10:00, TRIALYSIS CATHETER PLACED BY DR. MAHARAJ. PLACEMENT CONFIRMED VIA PORTABLE 1V CHEST XRAY. DOBUTAMINE TRANSITIONED TO CENTRAL CATHETER. PIV CONTINUES TO HAVE GOOD BLOOD RETURN.
--- NOTE | 2024-04-04 12:56 | NUR ---
MD update: Dr. Walton is aware that patient is obtunded, only arouses to sternal rub, & nursing is unable to obtain R pedal pulse.
[2024-04-04 13:11] LABS: International Normalized Ratio 1.72; Prothrombin Time Results 17.7 Sec (9.7-11.5)
[2024-04-04] MEDS ORDERED: Bumetanide 10 MG in Bag 1 BAG IV SCH (14:55)
--- NOTE | 2024-04-04 15:45 | NUR ---
MD update: Notified Dr. Walton of pt's episode of vomiting & significantly increased O2 requirements, from 5L NC to 15L oximask. Orders for duonebs & Airvo, & stop dopamine. Notified Dr. Dee that dopamine was stopped. He would like to wait one hour & then increase Dobutamine gtt to 5 mcgs/kg/min.
[2024-04-04] MEDS ORDERED: Ipratropium/Albuterol SulF 2.5-0.5MG/3 ML Amp INH SCH (16:00)
[2024-04-04 16:31] LABS: Bun/Creatinine Ratio 32.8 (12.0-20.0); Calcium, Blood 8.6 mg/dL (8.5-10.1); Creatinine, Blood 2.68 mg/dL (0.40-1.00); Potassium, Blood 5.7 mmol/L (3.5-5.5)
--- NOTE | 2024-04-04 17:10 | NUR ---
Shift summary: Obtunded throughout the shift, sometimes only responding to sternal rub, Dr. Walton made aware. Slightly more alert for part of afternoon. Oriented to self, place, time & follows commands x4 extremities. Pupils 4/brisk. Occasionally irritable. Heart rate stable in 70-80s. MAPs above 65 per orders. Attempted to initiate dopamine gtt per Dr. Dee but patient had acute episode of de-saturation & vomiting, Dr. Walton to bedside, dopamine gtt stopped. Notified Dr. Dee & Dr. Leyva. Zofran x1 given with resolution of nausea. RT to bedside & Airvo placed with settings of 40L/65% due to sustained oxygen saturations of 75-77%. Dobutamine increased to 5 mcgs/kg/min. Bumex gtt also infusing at 0.5 mg/hr. Urine output remains marginal. Unable to obtain R pedal pulse, Dr. Walton aware. R PT & L pedal/PT pulses all dopplerable. Trialysis, PIV, & Hendricks cath in place. Son, partner, & patient updated on plan of care.
[2024-04-04] MEDS ORDERED: Lactulose 20 GM/30 ML UDC PO SCH (21:00)
[2024-04-05] VITALS (84 sets, daily range): BP systolic 72–121; BP diastolic 34–111
[2024-04-05 04:31] LABS: BASOPHILS ABSOLUTE AUTO 0.02 K/mm3 (0.00-0.23); BASOPHILS PERCENT AUTO 0 % (0-2); EOSINOPHILS PERCENT AUTO 0 % (0-6); Hematocrit 43.7 % (33.0-51.0); Hemoglobin 12.9 g/dL (11.5-16.0); IMMATURE GRAN PERCENT AUTO 1 % (0-1); LYMPHOCYTES ABSOLUTE AUTO 0.75 K/mm3 (0.84-5.20); LYMPHOCYTES PERCENT AUTO 8 % (21-46); MONOCYTES ABSOLUTE AUTO 0.72 K/mm3 (0.16-1.47); MONOCYTES PERCENT AUTO 7 % (4-13); Mean Corpuscular HGB 24.8 pg (26.0-34.0); Mean Corpuscular HGB Conc 29.5 g/dL (31.5-36.5); Mean Corpuscular Volume 84 fL (80-100); Mean Platelet Volume 11.2 fL (9.1-12.4); NEUTROPHILS ABSOLUTE AUTO 8.19 K/mm3 (1.96-9.15); NEUTROPHILS PERCENT AUTO 84 % (41-73); NRBC ABSOLUTE 0.04 K/mm3 (0.00-0.02); NRBC Auto 0.4 /100 WBC (0.0-0.2); Platelet Count 150 K/mm3 (150-400); RDW Coefficient Variation 15.5 % (11.7-14.2); RDW Standard Deviation 46.5 fL (35.1-46.3); White Blood Cell Count 9.78 K/mm3 (4.00-11.30)
[2024-04-05 04:53] LABS: Albumin, Blood 2.8 g/dL (3.4-5.0); Anion Gap 11 mmol/L (3-11); Blood Urea Nitrogen 77 mg/dL (8-24); Bun/Creatinine Ratio 32.6 (12.0-20.0); CO2, Blood 35 mmol/L (21-32); Calcium, Blood 7.7 mg/dL (8.5-10.1); Chloride, Blood 86 mmol/L (98-108); Creatinine, Blood 2.36 mg/dL (0.40-1.00); Glomerular Filtration Rate 23 (60-); Glucose, Blood 156 mg/dL (70-99); Phosphorus, Blood 6.7 mg/dL (2.5-4.9); Potassium, Blood 4.4 mmol/L (3.5-5.5); Sodium, Blood 128 mmol/L (136-145)
--- NOTE | 2024-04-05 08:00 | NUR ---
More alert today, oriented x3, a little unsure of situation. Follows all commands. In NSR on the monitor with stable BPs & MAPs above 65 on 5 mcgs/kg/min Dobutamine gtt. Still unable to obtain R pedal pulse but PT is strong with doppler. On the Airvo 40L/55% with clear lung sounds. Urine yellow & clear with patent & secure Hendricks cath in place. Trialysis cath & PIV. Bumex gtt infusing at 0.5 mg/hr. Will continue to monitor.
--- NOTE | 2024-04-05 17:56 | NUR ---
Shift summary: Remains alert & oriented. No complaints of pain. Follows all commands. In NSR with MAPs above 65 on dobutamine gtt 5 mcgs/kg/min. Weaned from Airvo to 6L NC with sat goal of 88% or better. Productive cough. Bowel movement x2. Diuresed over 2L with bumex gtt which is infusing at 0.5 mg/hr. Good PO intake. OOB to chair with lift. Would benefit from PT/OT eval. Hendricks, PIV, trialysis cath in place. Partner & patient updated throughout the day.
--- NOTE | 2024-04-05 20:00 | NUR ---
ASSUMED CARE OF PT AT 1900. REPORT RECEIVED AT BEDSIDE. PT PRESENTS IN BED. DEMONSTRATES SOME CONFUSION AND IS NOT AWARE SHE IS IN THE HOSPITAL. PER REPORT, PT'S MENTATION HAS BEEN SLOWLY IMPROVING. WILL MONITOR FOR IMPROVEMENTS. PT FREQUENTLY PULLS OFF HER OXYGEN, AND OXYMETER. NEEDS TO BE REMINDED TO LEAVE THESE IN PLACE. PT ALSO NOTED TO YELL OUT WITH HER NEEDS. INSTRUCTED PT TO USE CALL LIGHT SYSTEM. WILL REVIEW CHART AND PLAN OF CARE FOR THIS PT.
--- NOTE | 2024-04-05 22:55 | NUR ---
DR Dee HAS COME IN TO SEE PT. ORDERS RECEIVED. UPDATES GIVEN TO MD. PT HAS SUBSEQUENTLY HAD 2 MORE LOOSE STOOLS. HAVE HELD LACTULOSE SECONDARY TO PT HAVING > 5 BM'S THIS DAY. PENDING AMMONIA LEVEL IN AM. CONTINUES ON BUMEX DRIP WITH GOOD URINARY OUTPUT. DOBUTAMINE REMAINS AT STEADY RATE WITHOUT TITRATION OPTION.
[2024-04-06] VITALS (78 sets, daily range): BP systolic 80–148; BP diastolic 55–129
[2024-04-06 04:35] LABS: BASOPHILS ABSOLUTE AUTO 0.02 K/mm3 (0.00-0.23); BASOPHILS PERCENT AUTO 0 % (0-2); EOSINOPHILS PERCENT AUTO 0 % (0-6); Hematocrit 41.4 % (33.0-51.0); Hemoglobin 12.5 g/dL (11.5-16.0); IMMATURE GRAN ABSOLUTE AUTO 0.06 K/mm3 (0.00-0.10); IMMATURE GRAN PERCENT AUTO 1 % (0-1); LYMPHOCYTES ABSOLUTE AUTO 0.69 K/mm3 (0.84-5.20); LYMPHOCYTES PERCENT AUTO 9 % (21-46); MONOCYTES ABSOLUTE AUTO 0.64 K/mm3 (0.16-1.47); MONOCYTES PERCENT AUTO 8 % (4-13); Mean Corpuscular HGB 24.7 pg (26.0-34.0); Mean Corpuscular HGB Conc 30.2 g/dL (31.5-36.5); Mean Corpuscular Volume 82 fL (80-100); Mean Platelet Volume 11.1 fL (9.1-12.4); NEUTROPHILS ABSOLUTE AUTO 6.69 K/mm3 (1.96-9.15); NEUTROPHILS PERCENT AUTO 83 % (41-73); NRBC ABSOLUTE 0.03 K/mm3 (0.00-0.02); NRBC Auto 0.4 /100 WBC (0.0-0.2); Platelet Count 119 K/mm3 (150-400); RDW Coefficient Variation 15.7 % (11.7-14.2); RDW Standard Deviation 46.1 fL (35.1-46.3); Red Blood Cell Count 5.06 M/mm3 (3.80-5.20)
[2024-04-06 04:52] LABS: Albumin, Blood 2.7 g/dL (3.4-5.0); Anion Gap 9 mmol/L (3-11); Blood Urea Nitrogen 63 mg/dL (8-24); Bun/Creatinine Ratio 39.4 (12.0-20.0); CO2, Blood 43 mmol/L (21-32); Calcium, Blood 7.7 mg/dL (8.5-10.1); Chloride, Blood 84 mmol/L (98-108); Glomerular Filtration Rate 37 (60-); Glucose, Blood 136 mg/dL (70-99); Potassium, Blood 2.9 mmol/L (3.5-5.5); Sodium, Blood 133 mmol/L (136-145)
[2024-04-06] MEDS ORDERED: Potassium Chl 20MEQ/Water100ML 100 ML IV SCH (05:35)
[2024-04-06] MEDS ORDERED: Potassium Chloride 20 MEQ in NS 90 ML IV SCH (05:40)
--- NOTE | 2024-04-06 06:40 | NUR ---
PT HAS HAD MULTIPLE LOOSE INCONTINENT STOOLS THIS NIGHT. HAS ENDORSED SEEING "WEIRD PEOPLE" IN HER ROOM WELL SEEING "CATS". PT STATES THAT THIS IS SCARY, BUT ALSO ADMITS THAT SHE KNOWS THAT THIS IS NOT REAL. NEEDS REMINDERS WHERE SHE IS (AT THE HOSPITAL) EARLIER IN THE NIGHT SHE THOUGHT SHE WAS IN HER BASEMENT AT HOME. PT TENDS TO YELL OUT WHEN SHE WANTS SOMETHING. HAS AGREED THIS MORNING TO STOP YELLING AND TO USE HER CALL LIGHT. WHICH SHE HAS. WILL CONTINUE TO MONITOR PT, AND WILL REPORT OFF TO ONCOMING RN.
--- NOTE | 2024-04-06 09:25 | NUR ---
[place] of care: Drowsy but arousable & oriented. States she is hallucinating, seeing scary things that aren't there. Did not sleep last night. Follows commands. NSR in 90s, stable blood pressures on 5 mcgs/kg/min of dobutamine. On 4L face mask due to mouth breathing. Clear lung sounds. Bumex gtt at 0.5 mg/hr with excellent urine output, kidney function improving. Copious bowel movements on operation shift supervisor so lactulose held but ammonia downtrending. Trialysis catheter & PIV secure & in place. KCL replacement infusing. Will continue to monitor.
[2024-04-06] MEDS ORDERED: Promethazine HCl 25 MG Tab PO ONE (11:20)
[2024-04-06] MEDS ORDERED: Sertraline HCl 50 MG Tab PO SCH (12:00)
[2024-04-06] MEDS ORDERED: Potassium Chloride 20 MEQ TabCR PO SCH (12:00)
[2024-04-06 18:58] LABS: Magnesium, Blood 1.4 mg/dL (1.6-2.4)
[2024-04-06 19:02] LABS: Blood Urea Nitrogen 56 mg/dL (8-24); Bun/Creatinine Ratio 41.8 (12.0-20.0); Calcium, Blood 7.7 mg/dL (8.5-10.1); Chloride, Blood 81 mmol/L (98-108); Creatinine, Blood 1.34 mg/dL (0.40-1.00); Glomerular Filtration Rate 46 (60-); Glucose, Blood 179 mg/dL (70-99); Potassium, Blood 3.1 mmol/L (3.5-5.5); Sodium, Blood 136 mmol/L (136-145)
[2024-04-06 19:03] LABS: Anion Gap Unable to Calculate mmol/L (3-11); CO2, Blood >45 mmol/L (21-32)
[2024-04-07] VITALS (30 sets, daily range): BP systolic 80–105; BP diastolic 59–78
[2024-04-07] MEDS ORDERED: AcetaZOLAMIDE Sodium 500 MG Vial IV SCH
[2024-04-07 03:48] LABS: BASOPHILS ABSOLUTE AUTO 0.02 K/mm3 (0.00-0.23); BASOPHILS PERCENT AUTO 0 % (0-2); EOSINOPHILS PERCENT AUTO 0 % (0-6); Hematocrit 45.8 % (33.0-51.0); Hemoglobin 13.2 g/dL (11.5-16.0); IMMATURE GRAN ABSOLUTE AUTO 0.05 K/mm3 (0.00-0.10); IMMATURE GRAN PERCENT AUTO 1 % (0-1); LYMPHOCYTES ABSOLUTE AUTO 0.82 K/mm3 (0.84-5.20); LYMPHOCYTES PERCENT AUTO 13 % (21-46); MONOCYTES ABSOLUTE AUTO 0.74 K/mm3 (0.16-1.47); MONOCYTES PERCENT AUTO 11 % (4-13); Mean Corpuscular HGB 24.2 pg (26.0-34.0); Mean Corpuscular HGB Conc 28.8 g/dL (31.5-36.5); Mean Corpuscular Volume 84 fL (80-100); Mean Platelet Volume 10.9 fL (9.1-12.4); NEUTROPHILS PERCENT AUTO 75 % (41-73); Platelet Count 108 K/mm3 (150-400); RDW Coefficient Variation 16.2 % (11.7-14.2); RDW Standard Deviation 48.6 fL (35.1-46.3); Red Blood Cell Count 5.46 M/mm3 (3.80-5.20); White Blood Cell Count 6.53 K/mm3 (4.00-11.30)
[2024-04-07 04:03] LABS: International Normalized Ratio 1.45; Prothrombin Time Results 15.1 Sec (9.7-11.5)
[2024-04-07 04:20] LABS: Magnesium, Blood 1.5 mg/dL (1.6-2.4)
[2024-04-07 04:26] LABS: Alanine Aminotransfer (ALT/SGP 1434 U/L (12-78); Albumin, Blood 2.8 g/dL (3.4-5.0); Albumin/Globulin Ratio 0.9 (0.8-1.8); Alk Phos 105 U/L (50-136); Aspartate Aminotrans (AST/SGOT 360 U/L (12-37); Bilirubin, Direct 0.5 mg/dL (0.0-0.3); Bilirubin, Indirect 0.8 mg/dL (0.1-0.7); Bilirubin, Total 1.3 mg/dL (0.1-1.0); Blood Urea Nitrogen 46 mg/dL (8-24); Bun/Creatinine Ratio 43.8 (12.0-20.0); Calcium, Blood 7.8 mg/dL (8.5-10.1); Chloride, Blood 81 mmol/L (98-108); Creatinine, Blood 1.05 mg/dL (0.40-1.00); Globulin, Blood 3.2 g/dL (2.2-4.0); Glomerular Filtration Rate 62 (60-); Glucose, Blood 120 mg/dL (70-99); Phosphorus, Blood 2.5 mg/dL (2.5-4.9); Potassium, Blood 2.8 mmol/L (3.5-5.5); Sodium, Blood 135 mmol/L (136-145)
[2024-04-07 04:27] LABS: Anion Gap Unable to Calculate mmol/L (3-11)
[2024-04-07 04:29] LABS: CO2, Blood >45 mmol/L (21-32)
[2024-04-07] MEDS ORDERED: Potassium Chloride 20 MEQ TabCR PO ONE (05:05)
[2024-04-07] MEDS ORDERED: Magnesium Sulf 2 GM/Water 50ML 50 ML IV ONE (05:05)
[2024-04-07] MEDS ORDERED: Potassium Chloride 20 MEQ in NS 90 ML IV ONE (06:00)
[2024-04-07] MEDS ORDERED: Potassium Chl 20MEQ/Water100ML 100 ML IV ONE (06:00)
[2024-04-07 08:22] LABS: PCO2 Venous 97.7 mmHg (38-42); pH Blood Venous 7.39 (7.34-7.37)
[2024-04-07 08:26] LABS: Base Excess Venous 34 mmol/L
[2024-04-07] MEDS ORDERED: Potassium Chloride 20 MEQ in NS 90 ML IV SCH (09:30)
[2024-04-07 13:47] LABS: 6-ACETYLMORPHINE, URN, QUANT <10 ng/mL; CODEINE, URN, QUANT <20 ng/mL; HYDROCODONE, URN, QUANT <20 ng/mL; HYDROMORPHONE, URN, QUANT 130 ng/mL; MORPHINE, URN, QUANT <20 ng/mL; NORHYDROCODONE, URN, QUANT <20 ng/mL; NOROXYCODONE, URN, QUANT <20 ng/mL; NOROXYMORPHONE, URN, QUANT <20 ng/mL; OXYCODONE, URN, QUANT <20 ng/mL; OXYMORPHONE, URN, QUANT <20 ng/mL
[2024-04-07] MEDS ORDERED: DOBUtamine 250 MG/D5W 250 ML 250 ML IV SCH (17:20)
--- NOTE | 2024-04-07 18:13 | NUR ---
PATIENT WAS A&O APPROPRIATE AND COOPERATIVE, BUMEX STOPPED, DOBUTAMINE DECREASED, MAKING GOOD URINE
[2024-04-07] MEDS ORDERED: Apixaban 5 MG Tab PO SCH (21:00)
[2024-04-08] VITALS (17 sets, daily range): BP systolic 75–104; BP diastolic 48–74
[2024-04-08 03:37] LABS: BASOPHILS ABSOLUTE AUTO 0.03 K/mm3 (0.00-0.23); BASOPHILS PERCENT AUTO 0 % (0-2); EOSINOPHILS PERCENT AUTO 0 % (0-6); Hematocrit 45.9 % (33.0-51.0); Hemoglobin 13.1 g/dL (11.5-16.0); IMMATURE GRAN ABSOLUTE AUTO 0.04 K/mm3 (0.00-0.10); IMMATURE GRAN PERCENT AUTO 1 % (0-1); LYMPHOCYTES PERCENT AUTO 14 % (21-46); MONOCYTES ABSOLUTE AUTO 0.92 K/mm3 (0.16-1.47); MONOCYTES PERCENT AUTO 13 % (4-13); Mean Corpuscular HGB 24.3 pg (26.0-34.0); Mean Corpuscular HGB Conc 28.5 g/dL (31.5-36.5); Mean Corpuscular Volume 85 fL (80-100); Mean Platelet Volume 10.6 fL (9.1-12.4); NEUTROPHILS ABSOLUTE AUTO 5.38 K/mm3 (1.96-9.15); NEUTROPHILS PERCENT AUTO 73 % (41-73); Platelet Count 109 K/mm3 (150-400); RDW Coefficient Variation 16.8 % (11.7-14.2); RDW Standard Deviation 50.5 fL (35.1-46.3); Red Blood Cell Count 5.39 M/mm3 (3.80-5.20); White Blood Cell Count 7.37 K/mm3 (4.00-11.30)
[2024-04-08 04:12] LABS: Alanine Aminotransfer (ALT/SGP 993 U/L (12-78); Albumin, Blood 2.7 g/dL (3.4-5.0); Albumin/Globulin Ratio 0.9 (0.8-1.8); Alk Phos 90 U/L (50-136); Aspartate Aminotrans (AST/SGOT 194 U/L (12-37); Bilirubin, Total 1.2 mg/dL (0.1-1.0); Blood Urea Nitrogen 40 mg/dL (8-24); Bun/Creatinine Ratio 35.4 (12.0-20.0); Calcium, Blood 8.4 mg/dL (8.5-10.1); Chloride, Blood 84 mmol/L (98-108); Creatinine, Blood 1.13 mg/dL (0.40-1.00); Globulin, Blood 3.1 g/dL (2.2-4.0); Glomerular Filtration Rate 57 (60-); Glucose, Blood 151 mg/dL (70-99); Potassium, Blood 3.3 mmol/L (3.5-5.5); Sodium, Blood 136 mmol/L (136-145); Total Protein, Blood 5.8 g/dL (6.4-8.2)
[2024-04-08 04:14] LABS: Anion Gap Unable to Calculate mmol/L (3-11); CO2, Blood >45 mmol/L (21-32)
[2024-04-08] MEDS ORDERED: Potassium Chloride 20 MEQ TabCR PO ONE (04:40)
[2024-04-08] MEDS ORDERED: Digoxin 0.25 MG Tab PO ONE (09:25)
[2024-04-08] MEDS ORDERED: Digoxin 0.25 MG/ML 2ML Amp IV SCH (12:35)
--- NOTE | 2024-04-08 13:22 | NUR ---
PATIENT HAD HEART RATES JUMPING UP TO 171, AND SUSTAINING IN THE 140S-150S, CALLED MD, HE ORDERED DIGOXIN
--- NOTE | 2024-04-08 15:13 | NUR ---
TRIALYSIS REMOVED, NO ADVERSE REACTIONS, PRESSURE HELD, OCCLUSIVE DRESSING APPLIED
[2024-04-08] MEDS ORDERED: Digoxin 0.25 MG Tab PO SCH (16:00)
[2024-04-08] MEDS ORDERED: Metoprolol Tartrate 1 MG/ML 5 ML VIAL IV PRN (22:30)
[2024-04-09] VITALS (17 sets, daily range): BP systolic 96–125; BP diastolic 57–83
[2024-04-09 03:51] LABS: BASOPHILS ABSOLUTE AUTO 0.04 K/mm3 (0.00-0.23); BASOPHILS PERCENT AUTO 1 % (0-2); EOSINOPHILS ABSOLUTE AUTO 0.01 K/mm3 (0.00-0.68); EOSINOPHILS PERCENT AUTO 0 % (0-6); Hematocrit 44.1 % (33.0-51.0); Hemoglobin 12.8 g/dL (11.5-16.0); IMMATURE GRAN ABSOLUTE AUTO 0.02 K/mm3 (0.00-0.10); IMMATURE GRAN PERCENT AUTO 0 % (0-1); LYMPHOCYTES ABSOLUTE AUTO 1.21 K/mm3 (0.84-5.20); LYMPHOCYTES PERCENT AUTO 17 % (21-46); MONOCYTES ABSOLUTE AUTO 0.76 K/mm3 (0.16-1.47); MONOCYTES PERCENT AUTO 11 % (4-13); Mean Corpuscular HGB 24.2 pg (26.0-34.0); Mean Corpuscular Volume 84 fL (80-100); Mean Platelet Volume 10.7 fL (9.1-12.4); NEUTROPHILS ABSOLUTE AUTO 5.19 K/mm3 (1.96-9.15); NEUTROPHILS PERCENT AUTO 72 % (41-73); Platelet Count 97 K/mm3 (150-400); RDW Coefficient Variation 17.1 % (11.7-14.2); RDW Standard Deviation 50.7 fL (35.1-46.3); Red Blood Cell Count 5.28 M/mm3 (3.80-5.20); White Blood Cell Count 7.23 K/mm3 (4.00-11.30)
[2024-04-09 04:12] LABS: Alanine Aminotransfer (ALT/SGP 698 U/L (12-78); Albumin, Blood 2.6 g/dL (3.4-5.0); Albumin/Globulin Ratio 0.8 (0.8-1.8); Alk Phos 81 U/L (50-136); Anion Gap 9 mmol/L (3-11); Aspartate Aminotrans (AST/SGOT 126 U/L (12-37); Bilirubin, Total 1.5 mg/dL (0.1-1.0); Blood Urea Nitrogen 35 mg/dL (8-24); Bun/Creatinine Ratio 33.7 (12.0-20.0); CO2, Blood 43 mmol/L (21-32); Calcium, Blood 8.9 mg/dL (8.5-10.1); Chloride, Blood 90 mmol/L (98-108); Creatinine, Blood 1.04 mg/dL (0.40-1.00); Digoxin (Lanoxin) 1.24 ug/mL (0.80-2.00); Globulin, Blood 3.2 g/dL (2.2-4.0); Glomerular Filtration Rate 63 (60-); Glucose, Blood 102 mg/dL (70-99); Potassium, Blood 3.6 mmol/L (3.5-5.5); Sodium, Blood 138 mmol/L (136-145); Total Protein, Blood 5.8 g/dL (6.4-8.2)
--- NOTE | 2024-04-09 06:23 | NUR ---
SHIFT SUMMARY PT HEART RHYTHM FLUCUATING BETWEEN AFIB AND AFLUTTER RATE OF 80-90s, PT ASYMPTOMATIC SBP 100-120s, ON 3 LPM NC WITH SPO2>90%, PT REFUSED REPOSITIONING MOST OF THIS SHIFT, TURNED AND REPOSITIONED X2, NO BM THIS SHIFT,ANDERSON PATENT AND DRAINING TO GRAVITY, SIDE RAILS UP X2 CALL LIGHT IN REACH
[2024-04-09] MEDS ORDERED: Bumetanide 0.25 MG/ML 4ML ViaL IV SCH (09:00)
[2024-04-09] MEDS ORDERED: Digoxin 0.125 MG Tab PO SCH (18:00)
--- NOTE | 2024-04-09 18:33 | NUR ---
GOOD SHIFT FOR GAUTAM, SHE WAS ABLE TO MOVE AND ASSIST WITH MOVES IN THE BED, SHE HAD A BATH AND LINEN CHANGE, WORKED WITH THERAPY, ATE WELL TODAY, TOOK IN FLUIDS, COMMUNICATED WELL, COUGHED UP QUITE A BIT T/O THE DAY.
[2024-04-10] VITALS (7 sets, daily range): BP systolic 91–118; BP diastolic 63–87
[2024-04-10 03:41] LABS: Bicarbonate Venous 40.6 mmol/L (24.0-30.0); PCO2 Venous 52.3 mmHg (38-42); pH Blood Venous 7.51 (7.34-7.37)
[2024-04-10 04:32] LABS: Anion Gap 8 mmol/L (3-11); Blood Urea Nitrogen 35 mg/dL (8-24); Bun/Creatinine Ratio 35.1 (12.0-20.0); CO2, Blood 39 mmol/L (21-32); Calcium, Blood 8.6 mg/dL (8.5-10.1); Chloride, Blood 95 mmol/L (98-108); Digoxin (Lanoxin) 1.07 ug/mL (0.80-2.00); Glomerular Filtration Rate 66 (60-); Glucose, Blood 133 mg/dL (70-99); Potassium, Blood 3.4 mmol/L (3.5-5.5); Sodium, Blood 139 mmol/L (136-145)
--- NOTE | 2024-04-10 08:30 | NUR ---
[place] of care: Alert, oriented. OOB to chair with walker. Vital signs stable on 3L NC. Awaiting PCU bed. Will continue to monitor.
[2024-04-10] MEDS ORDERED: Losartan Potassium 25 MG Tab PO SCH (09:00)
[2024-04-10] MEDS ORDERED: Torsemide 20 MG TAB PO SCH (09:00)
--- NOTE | 2024-04-10 17:00 | NUR ---
Shift summary: Continues to await PCU bed. Neuro intact with stable vital signs on 3L NC. OOB to chair with walker. Diuresing well with baltazar cath secure & patent. Good PO intake. PIV in place. Patient updated on plan of care.
--- NOTE | 2024-04-10 19:35 | NUR ---
ASSESSMENT/ASSUMED CARE PT LAYING IN BED. A&O X4. ANSWERING QUESTIONS APPROP. SPEECH CLEAR AND APPROP. LUNGS WITH INS AND EXP WHEEZES TO UPPER LOBES BUT DECREASED IN BASES ON 3 LITER VIA [place] NC. RESP EVEN AND NONLABORED. PT REPORTS,"SOB AND COUGH BETTER THAN BEFORE". REFUSED UDN TX. HEART RATE SINUS RHYTHM IN THE 90'S. DENEIS CHEST PAIN OR PRESSURE. BP STABLE. EDEMA NOTED TO BILAT HANDS AND FEET. BT+ ABD SOFT AND NONTENDER. DENIES N/V. NEW IV 20G TO LEFT WRIST SALINE LOCKED. SITE CLEAR. ANDERSON CATH PATENT AND DRAINING YELLOW CLOUDY URINE. ANDERSON CATH CARE DONE. MOVING SELF IN BED. ASSISTED WITH PLACING PILLOW BEHIND BACK,
[2024-04-11] VITALS (10 sets, daily range): BP systolic 85–100; BP diastolic 58–71
[2024-04-11 04:29] LABS: Albumin, Blood 2.6 g/dL (3.4-5.0); Albumin/Globulin Ratio 0.8 (0.8-1.8); Bilirubin, Total 1.1 mg/dL (0.1-1.0); Calcium, Blood 8.9 mg/dL (8.5-10.1); Globulin, Blood 3.3 g/dL (2.2-4.0); Potassium, Blood 3.4 mmol/L (3.5-5.5); Total Protein, Blood 5.9 g/dL (6.4-8.2)
--- NOTE | 2024-04-11 06:12 | NUR ---
SHIFT SUMMARY PT RESTING QUIETLY. TURNING AND MOVING SELF IN BED. UP TO BSC THREE TIMES DURING THE NIGHT FOR LARGE BM'S. DENIES PAIN OR DISCOMFORT. NEW IV PLACED TO LEFT WRIST DURING THE NIGHT. REPORT TO ON COMING NURSE
[2024-04-11] MEDS ORDERED: Potassium Chloride 20 MEQ TabCR PO SCH (08:00)
--- NOTE | 2024-04-11 08:49 | NUR ---
UNSUSTAINED BRADYCARDIA/PAUSES NOTED ON MONITOR THIS AM, NEW DEVELOPMENT PER NOC NURSE. DR. GARCIA AT BEDSIDE. VERBAL TO HOLD AM METOPROLOL AND LOSARTAN, CONTINUE WITH TORSEMIDE. CALL DR. GARCIA WITH UPDATE ON VS AT NOON OR BEFORE WITH ANY CHANGES.
[2024-04-11] MEDS ORDERED: Metoprolol Succinate 25 MG TABCR PO SCH ×2 (09:00→13:00)
[2024-04-11] MEDS ORDERED: Torsemide 20 MG TAB PO SCH (09:00)
--- NOTE | 2024-04-11 10:24 | NUR ---
ASSUMED CARE OF PATIENT AT APPROXIMATELY 0700. REPORT RECEIVED FROM FREDY FLOREZ. PT ASLEEP IN BED AT TIME OF BEDSIDE REPORT. CONTINOUS CARIDAC MONITORING IN PLACE SHOWS SR. ON 3LPM O2 VIA NC. TEMP ANDERSON DRAINING TO GRAVITY. SEE SHIFT ASSESSMENT FOR FULL DETAILS.
--- NOTE | 2024-04-11 17:56 | NUR ---
SHIFT SUMMARY PT REMAINED ALERT AND ORIENTED X 4 T/O ENTIRETY OF SHIFT. ABLE TO FOLLOW COMMANDS, MAKE PURPOSEFUL MOVEMENTS, AND MAKE NEEDS KNOWN. AMBULATES TO BSC WITH SBA FOR CORD GUIDANCE. AFEBRILE AND DENIES PAIN. CONTINOUS CARDIAC MONITORING IN PLACE SHOWS SR WITH HR IN 80'S-90'S APART FROM EARLIER EPISODE OF PAUSES/BRADYCARDIA (SEE NOTE). BP STABLE WITH MAP MAINTAINING GOAL OF > 60. ON 3LPM O2 VIA NC WITH O2 SATURATIONS > 92% FLUTTER VALVE PROVIDED, PT DEMONSTRATED APPROPRIATE USE. TEMP MONICA DC'ED THIS SHIFT, PUREWICK IN PLACE. PT HAD MULTIPLE BM'S THIS SHIFT. TOLERATING PO INTAKE WELL. DENIES N/V. WILL CONTINUE TO MONITOR AND REPORT TO ONCOMING RN.
[2024-04-11] MEDS ORDERED: Losartan Potassium 25 MG Tab PO SCH (21:00)
--- NOTE | 2024-04-11 22:59 | NUR ---
TRANSFERED TO [facility] FLOOR GAVE REPORT TO MORGAN DANIEL ON MED FLOOR @5308. TRANSFERED CARE TO MORGAN DANIEL ON MED FLOOR @2240 ( WAITING FOR TELE BOX) ROOM 341.
[2024-04-12] MEDS ORDERED: Ipratropium/Albuterol SulF 2.5-0.5MG/3 ML Amp INH SCH (02:13)
[2024-04-12 03:21] VITALS: BP 103/70
[2024-04-12 06:13] LABS: Albumin, Blood 2.7 g/dL (3.4-5.0); Albumin/Globulin Ratio 0.8 (0.8-1.8); Bilirubin, Total 0.9 mg/dL (0.1-1.0); Bun/Creatinine Ratio 44.3 (12.0-20.0); Calcium, Blood 8.8 mg/dL (8.5-10.1); Creatinine, Blood 0.81 mg/dL (0.40-1.00); Globulin, Blood 3.2 g/dL (2.2-4.0); Phosphorus, Blood 3.1 mg/dL (2.5-4.9); Potassium, Blood 3.5 mmol/L (3.5-5.5); Total Protein, Blood 5.9 g/dL (6.4-8.2)
[2024-04-12 07:16] VITALS: BP 118/79
[2024-04-12] MEDS ORDERED: Ipratropium/Albuterol SulF 2.5-0.5MG/3 ML Amp INH PRN (09:15)
[2024-04-12] MEDS ORDERED: METO50ER PO (15:09)
[2024-04-12] MEDS ORDERED: XARELTO20 MG PO (15:11)
[2024-04-12] MEDS ORDERED: Crestor40 MG PO (15:14)
[2024-04-12] MEDS ORDERED: DIGOX250 MCG PO (15:45)
[2024-04-12] MEDS ORDERED: ELIQUIS5 M2 PO (15:45)
[2024-04-12] MEDS ORDERED: JARDIANCE10 MG PO (15:46)
[2024-04-12] MEDS ORDERED: LACT10SY PO (15:48)
[2024-04-12] MEDS ORDERED: LOSA25 PO (15:48)
[2024-04-12] MEDS ORDERED: METO25ER PO (15:49)
[2024-04-12] MEDS ORDERED: TORSE20 PO (15:50)
--- NOTE | 2024-04-12 16:55 | NUR ---
PT DISCHARGED WITH DC INSTRUCTIONS. PORTABLE OXYGEN TANK, WHEELCHAIR OUT TO PRIVATE CAR FOR FAMILY TO DRIVE HOME. RX FAXED TO [facility] LATE 1649. SENT HOME WITH BELONGINGS.
== END 2024-04-12 16:05 | disposition home or self-care (01) | DRG 291 ==
LOC: ER 19:50 → ERHOLD 19:51 → ICUE 03-31 13:26 → ERHOLD 03-31 13:26 → MEDS 03-31 13:26 → ERHOLD 03-31 13:27 → MEDS 03-31 15:17 → PCU 04-04 00:32 → ICUE 04-04 08:46 → MEDS 04-11 22:30
PROVIDERS: Emergency Medicine; Hospitalist; Internal Medicine; Internal Medicine Cardiovascular Disease; Internal Medicine Critical Care Medicine; Nurse Practitioner Acute Care; Physician Assistant; ADMIT Internal Medicine
PROC: 02HV33Z Insertion of Infusion Device into Superior Vena Cava, Percutaneous Approach (ICD-10-PCS; principal; 2024-04-04)
PROC: B548ZZA Ultrasonography of Superior Vena Cava, Guidance (ICD-10-PCS; 2024-04-04)
PROC: 3E043XZ Introduction of Vasopressor into Central Vein, Percutaneous Approach (ICD-10-PCS; 2024-04-04)
DX: I13.0 Hypertensive heart and chronic kidney disease with heart failure and stage 1 through stage 4 chronic kidney disease, or unspecified chronic kidney disease (principal); G92.8 Other toxic encephalopathy; N17.0 Acute kidney failure with tubular necrosis; I50.21 Acute systolic (congestive) heart failure; E87.1 Hypo-osmolality and hyponatremia; E87.3 Alkalosis; I50.32 Chronic diastolic (congestive) heart failure; J44.9 Chronic obstructive pulmonary disease, unspecified; I42.8 Other cardiomyopathies; Z99.81 Dependence on supplemental oxygen; G43.909 Migraine, unspecified, not intractable, without status migrainosus; K21.9 Gastro-esophageal reflux disease without esophagitis; N18.9 Chronic kidney disease, unspecified; E11.22 Type 2 diabetes mellitus with diabetic chronic kidney disease; E11.51 Type 2 diabetes mellitus with diabetic peripheral angiopathy without gangrene; E87.5 Hyperkalemia; K76.82 Hepatic encephalopathy; K76.1 Chronic passive congestion of liver; I27.20 Pulmonary hypertension, unspecified; I50.82 Biventricular heart failure; E87.6 Hypokalemia; E83.42 Hypomagnesemia; F41.9 Anxiety disorder, unspecified; F32.A Depression, unspecified; Z90.49 Acquired absence of other specified parts of digestive tract; Z98.890 Other specified postprocedural states; Z98.51 Tubal ligation status; Z88.0 Allergy status to penicillin; Z88.6 Allergy status to analgesic agent; Z88.1 Allergy status to other antibiotic agents; Z79.84 Long term (current) use of oral hypoglycemic drugs; Z79.899 Other long term (current) drug therapy; F17.210 Nicotine dependence, cigarettes, uncomplicated
CPT/HCPCS: 36415; 36556; 51702; 71045; 71046; 74177; 80048; 80053; 80069; 80074; 80076; 80162; 80400; 81001; 82140; 82248; 82533; 82728; 82803; 82947; 83540; 83550; 83605; 83615; 83735; 83880; 84100; 84132; 84550; 85025; 85027; 85610; 87522; 93005; 93010; 93306; 94640; 94664; 94760; 94762; 96372; 96374; 96375; 96376; 97110; 97161; 97530; 99285-25; A9270; C1752; G0378; G0480; J0612; J0834; J1120; J1160; J1250; J1265; J1650; J1815; J1940; J2405; J3010; J3475; J3480; J7799; Q9967

== ENCOUNTER → 2024-04-17 | Outpatient (CLI) | payer OTHER ==
[~2024-04-17] MED LIST changes: +ANORO ELLIPTA1 EACH INH; +Crestor40 MG PO; +DIGOX250 MCG PO; +ELIQUIS5 M2 PO; +JARDIANCE10 MG PO; +LACT10SY PO; +LOSA25 PO; +METO50ER PO; +Prozac40 MG PO; +TORSE20 PO; +XARELTO20 MG PO
[2024-04-19 21:46] LABS: HCV QNT BY NAAT (IU/ML) Not Detected; HCV QNT BY NAAT (LOG IU/ML) Not Detected; HCV QNT BY NAAT INTERP Not Detected (Not Detected)
== END ==
LOC: LAB SHORT 13:39 → LAB 13:39
PROVIDERS: Student in an Organized Health Care Education/Training Program
DX: B18.2 Chronic viral hepatitis C (principal)
CPT/HCPCS: 87522